=== PATIENT | female | born 1940 | race Two or more races ===

== ENCOUNTER 2020-08-26 09:22 | Outpatient (REF) | payer MEDICARE, SELFPAY ==
[2020-08-26 11:54] LABS: Alanine Aminotransferase 13 U/L (0-31); Alkaline Phosphatase 94 U/L (39-117); Anion Gap 12 (12-20); Aspartate Amino Transferase 14 U/L (5-31); Bilirubin Total 0.9 mg/dL (0.0-1.0); Blood Urea Nitrogen 12 mg/dL (9-16); Calcium 9.5 mg/dL (8.4-10.2); Carbon Dioxide 29 mmol/L (22-29); Chloride 103 mmol/L (96-108); Estimated Glomerular Filt Rate 53; Glucose Fasting 107 mg/dL (60-99); Potassium 4.1 mmol/l (3.3-5.1); Sodium 140 mmol/L (135-145); Total Protein 7.2 g/dL (6.5-8.0)
[2020-08-26 12:22] LABS: TSH reflex Free T4 2.24 mIU/mL (0.32-4.0)
== END 2020-08-26 09:23 | disposition home or self-care (01) ==
LOC: HO.WFDLDS 09:22
PROVIDERS: Visit Provider Family Medicine
DX: E86.0 Dehydration (principal); F41.9 Anxiety disorder, unspecified
CPT/HCPCS: 80053; 84443

== ENCOUNTER 2021-01-20 10:34 | Outpatient (REF) | payer MEDICARE, SELFPAY ==
--- NOTE | ~2021-01-20 | MM_ITS ---
EXAMINATION: MM SCREENING DIGITAL BREAST TOMOSYNTHESIS, BILATERAL CLINICAL INFORMATION: Screening. Asymptomatic. The lifetime risk of breast cancer based on the Tyrer-Cuzick Model is 2%. COMPARISON: Mammography: 12/04/2019, 10/17/2018, 10/03/2017 TECHNIQUE: Digital breast tomosynthesis is performed in both the craniocaudal and mediolateral oblique views along with computer-aided detection (CAD). Synthesized 2D images are generated from the tomosynthesis. FINDINGS: There are scattered areas of fibroglandular density (ACR BI-RADS breast composition Category b). Parenchymal pattern is similar to prior studies. Nodularity anterior left breast is similar to prior studies. Bilateral retroareolar duct ectasia is also stable. There is no developing density or interval significant mass or architectural abnormality or abnormal calcifications. The axilla and skin contours are unremarkable. No significant changes. MM/MM tomosynthesis screening BI IMPRESSION: No significant changes from prior studies. ASSESSMENT: BI-RADS 2: Benign RECOMMENDATION: Routine annual mammography screening. This patient's information was entered into a reminder system with a target due date for their next mammogram.
== END 2021-01-20 10:35 | disposition home or self-care (01) ==
LOC: HO.MAMMO 10:34
PROVIDERS: Visit Provider Family Medicine
DX: Z12.31 Encounter for screening mammogram for malignant neoplasm of breast (principal)
CPT/HCPCS: 77063; 77067

== ENCOUNTER 2021-07-31 12:55 | Emergency (ER) | payer MEDICARE, SELFPAY ==
--- NOTE | ~2021-07-31 | XR_ITS ---
EXAMINATION: XR CHEST CLINICAL INFORMATION: Cough with wheezing for 2 weeks COMPARISON: 07/11/2018 TECHNIQUE: Frontal view of the chest was obtained. FINDINGS: Normal heart size. Mild unfolding of the thoracic aorta. Adequate expansion of the lungs. No focal consolidation. Stable chronic changes. No pleural effusion or pneumothorax. No acute osseous abnormality. Degenerative changes of the spine and bilateral shoulders. XR/XR chest 1V IMPRESSION: No acute disease within the chest.
[2021-07-31 12:59] VITALS: BP 145/76; PULSE 82; RESP 17; TEMP 36.3; O2SAT 96; BMI 33.8
[2021-07-31] MEDS: predniSONE 20 MG TABLET 60 MG PO (15:20)
[2021-07-31] MEDS: Albuterol Sulfate (0.083%) 2.5 MG/3 ML VIAL.NEB INHALE (15:42)
[2021-07-31 15:43] VITALS: PULSE 82; O2SAT 98
[2021-07-31 15:57] LABS: COVID-19 Test Negative (Negative)
--- NOTE | 2021-07-31 16:25 | ED.ASTHMA ---
HPI - Asthma General Chief Complaint: Asthma Stated Complaint: asthma Time Seen by Provider: 07/31/21 15:06 Source: patient and family (Daughter at bedside) Mode of arrival: ambulatory Limitations: language barrier (Taiwanese-speaking) History of Present Illness HPI Narrative: 80-year-old female with a past medical history of Chronic GERD, Depression and asthma currently on Singulair inhaler and nebulizers presenting to the ED with complaints of asthma exacerbation for the past 2 weeks with a dry cough and chest tightness. She reports that she is using her Singulair inhaler as prescribed although her grandson has asthma and he needed to use her nebulizer machine therefore she length at all and she has not gotten it back therefore she was unable to give herself a breathing treatment. She denies recent travel or sick contacts. She denies any fevers, chills, dizziness, headaches, neck pain/stiffness, sore throat, ear pain, trouble swallowing or breathing, chest pain, orthopnea, palpitations, nausea/vomiting/diarrhea constipation, abdominal pain, back pain, lower extremity edema or calf tenderness or any other symptoms complaints or concerns at this time. MD complaint: asthma attack , shortness of breath and wheezing Onset (ago): week(s) (Two weeks) Severity: moderate and worse than usual Context: other (She does not have her nebulizer due to she gave it to her grandson to use) Associated symptoms: dry cough Asthma History: followed by specialist Treatments Prior to Arrival: inhaled bronchodilator Related Data Current Asthma Therapy: inhaled bronchodilator Previous Rx's Medication Instructions Recorded paroxetine HCl 20 mg tablet (Paxil) 20 mg PO DAILY 90 Days #90 tab 10/19/20 albuterol sulfate 0.63 mg/3 mL 0.63 mg (3 mL) INHALATION QID PRN 07/31/21 solution for nebulization #75 ml albuterol sulfate 90 mcg/actuation 1 inh INHALATION QID PRN #8.5 g 07/31/21 aerosol inhaler azithromycin 250 mg tablet See Rx Instructions .ROUTE 07/31/21 .COMPLEX #6 tab nebulizers (AeroEclipse II #1 ea 07/31/21 Nebulizer) prednisone 20 mg tablet 40 mg PO DAILY 5 Days #10 tab 07/31/21 Allergies Allergy/AdvReac Type Severity Reaction Status Date / Time tree nut [TREE NUT] Allergy Severe SWELLING Verified 07/31/21 12:59 egg [EGG] Allergy Intermediate SWELLING,IT Verified 07/31/21 12:59 СВЕТЛАНА aspirin [ASPIRIN] Allergy Mild GI UPSET, Verified 07/31/21 12:59 stomach upset milk [MILK] Allergy Unknown ITCHY Verified 07/31/21 12:59 TONGUE - LACTOSE INTOL FRUIT Allergy Severe SWELLING Uncoded 07/31/21 12:59 Egg/Pro Allergy Unknown itching - Uncoded 07/31/21 12:59 no raw white, no merange Milk - lactose intollerance Allergy Unknown Unknown Uncoded 07/31/21 12:59 peaches, plums, apples, Allergy Unknown anaphylaxis Uncoded 07/31/21 12:59 prunes Review of Systems Review of Systems: Constitutional : denies med noncompliance, no history of PE or DVT, denies recent travel, No Fever, No Chills ENT/Mouth : No Hoarseness, No sore throat, No Rhinorrhea Eyes: No Redness, No Discharge, No Vision Changes Cardiovascular : No Chest Pain, + SOB, No Dyspnea on Exertion, No Edema, no pleurisy, Respiratory : + Cough, + Wheezing, No Sputum, no stridor, no hemoptysis, Gastrointestinal : No Nausea, No Vomiting, No Diarrhea, No abdominal Pain Genitourinary : No Dysuria, No Hematuria Musculoskeletal : No joint pain, No Myalgias Extremities: no extremity swelling /pain Skin : No rash, no itching, no swelling Neuro : No Weakness, No Numbness, No Headache Psych : No anxiety, depression Heme/Lymph: No Bruising, No Bleeding Endocrine : No Polyuria, No Polydipsia Yes all other systems are reviewed and are negative [facility] Past Medical History Attestation statement: The following information was validated with the patient. Social History Social History Advance Directives: No Physical Exam Vital Signs: Vital Signs: Last Vital Signs Temp 97.3 F 07/31/21 12:59 Pulse 82 07/31/21 15:43 Resp 17 07/31/21 12:59 BP 145/76 H 07/31/21 12:59 Pulse Ox 96 07/31/21 12:59 Body Mass Index 33.8 vital signs have been reviewed as normal and appeared to be correct. Blood pressure hypertensive 146/76 Heart rate normal. Respiration rate normal. Temperature normal. Oxygen saturation normal. Appearance: Alert. Oriented X3. No acute distress. Head: Normal external exam. Normocephalic. Atraumatic. Eyes: PERRLA. EOMI. Conjunctiva and sclera normal. Eyelids normal. ENT: EAC normal. TM's Normal. Pharynx normal. Uvula midline. Moist mucous membranes. No trismus noted. No drooling noted. No muffled voice noted. Neck: Normal inspection. Neck supple. FROM. No adenopathy. Thyroid Normal. No meningeal signs. No neck mass noted. CVS: Normal heart rate and rhythm. Heart sound normal. Pulses normal throughout. No murmurs/rales/gallops. Respiratory: Mild respiratory distress with decreased breath sounds and inspiratory and expiratory wheezing throughout. Patient has pain with inspiration. No rales/rhonchi noted. Chest is nontender. No accessory muscle usage or tracheal tugging noted. Back: Full range of motion noted. No rashes/lesion/induration/fluctuance or signs of infection noted. Skin: Skin warm and dry. Normal skin color. Normal skin turgor. No rashes/lesions/lacerations noted. Extremities: No lower extremity edema. No calf tenderness is noted. Extremities exhibit normal range of motion. Extremities nontender. Neuro: Oriented X 3. No motor deficit. No sensory deficit. Reflexes normal. Normal steady gait. No focal neuro deficits noted. Vascular: + radial pulses/+ 2 distal pedal pulses/+2 dorsalis pedis b/l. Normal cap refill. No cyanosis noted to upper extremity nails and lower extremity toes nails. Course Course Course Narrative: 80-year-old female with a past medical history of Chronic GERD, Depression and asthma currently on Singulair inhaler and nebulizers presenting to the ED with complaints of asthma exacerbation for the past 2 weeks with a dry cough and chest tightness. She reports that she is using her Singulair inhaler as prescribed although her grandson has asthma and he needed to use her nebulizer machine therefore she length at all and she has not gotten it back therefore she was unable to give herself a breathing treatment. Chest x-ray obtained and negative for any acute processes. COVID swab is negative. Patient is now status post breathing tx and exam improved. Will d/c home c abx's and steroids and instructions to f/u c PCP and to return if any new or worsening symptoms and to follow up with primary care provider. Patient and daughter at bedside understand and agree this plan. MDM - Asthma Medical Records Attestation: I reviewed the patient's medical records. Lab Data Labs: Lab Results 07/31/21 Range/Units 15:27 COVID-19 (TONY) Negative (Negative) COVID-19 Clin Com See Note Imaging Data Chest x-ray: Attestation: I personally reviewed and interpreted this imaging study as follows: Radiologist's impression: FINDINGS: Normal heart size. Mild unfolding of the thoracic aorta. Adequate expansion of the lungs. No focal consolidation. Stable chronic changes. No pleural effusion or pneumothorax. No acute osseous abnormality. Degenerative changes of the spine and bilateral shoulders. XR/XR chest 1V IMPRESSION: No acute disease within the chest. Critical Care Time Critical Care Time Critical Care Time: Yes Total Critical Care Time: 60 Attestation: I personally attest to this time spent taking care of the patient Discharge Plan Discharge Clinical Impression: Asthma with acute exacerbation, Acute asthmatic bronchitis Patient Disposition: Home, Self-Care Instructions: Asthma (ED), Acute Bronchitis (ED) Prescriptions: New (DME) AeroEclipse II Nebulizer Misc See Rx Instructions .ROUTE .MEDSUPPLY Qty: 1 RF: 0 albuterol sulfate 0.63 mg/3 mL solution for nebulization 0.63 mg inhalation QID PRN (Reason: shortness of breath or wheezing) Qty: 75 RF: 0 albuterol sulfate 90 mcg/actuation HFA aerosol inhaler 1 inh inhalation QID PRN (Reason: shortness of breath or wheezing) Qty: 8.5 RF: 0 azithromycin 250 mg tablet See Rx Instructions .ROUTE .COMPLEX Qty: 6 RF: 0 prednisone 20 mg tablet 40 mg PO DAILY 5 Days Qty: 10 RF: 0 No Action paroxetine HCl [Paxil] 20 mg tablet 20 mg PO DAILY 90 Days Qty: 90 RF: 3 Referrals: Roland Altman MD [Primary Care Provider] - 2 days Print Language: Urdu
== END 2021-07-31 16:40 | disposition home or self-care (01) ==
PROVIDERS: Physician Assistant Medical; Emergency Provider Emergency Medicine Emergency Medical Services; PCP Family Medicine
DX: J45.901 Unspecified asthma with (acute) exacerbation (principal); Z20.822 Contact with and (suspected) exposure to COVID-19; Z79.899 Other long term (current) drug therapy
CPT/HCPCS: 36415; 71045; 87635; 94640; 99283; 99284

== ENCOUNTER 2021-12-10 11:53 | Outpatient (REF) | payer MEDICARE, SELFPAY ==
[2021-12-10 13:47] LABS: MANUAL DIFF FLAG NO
[2021-12-10 13:53] LABS: Basophils Percent Auto 0.7 % (0-2); Eosinophils Absolute Auto 0.1 X10*3/uL (0.0-0.4); Eosinophils Percent Auto 1.7 % (0-4); Hemoglobin 13.9 g/dl (12.0-16.0); Imm Gran Abs Auto 0.01 X10*3/uL (0.00-0.03); Imm Gran Pct Auto 0.2 % (0.0-0.4); Lymphocytes Percent Auto 34.1 % (20-40); Mean Corpuscular HGB Conc 31.6 g/dl (31.0-35.0); Mean Corpuscular Hemoglobin 28.7 pg (27.0-33.0); Mean Corpuscular Volume 90.9 fL (80.0-98.0); Mean Platelet Volume 11.6 fL (9.4-12.3); Monocytes Absolute Auto 0.6 X10*3/uL (0.1-1.2); Monocytes Percent Auto 9.4 % (2-11); Neutrophils Absolute Auto 3.2 x10*3/uL (2.0-8.3); Neutrophils Percent Auto 53.9 % (45-73); Platelet Count 261 X10*3/uL (160-400); Red Blood Count 4.84 X10*6/uL (4.20-5.50); Red Cell Distribution Width 12.6 % (11.0-16.0); White Blood Count 5.9 X10*3/uL (4.8-10.8)
[2021-12-10 14:10] LABS: Alanine Aminotransferase 12 U/L (0-31); Albumin Level 4.2 g/dL (3.5-5.0); Alkaline Phosphatase 95 U/L (39-117); Anion Gap 11 (12-20); Aspartate Amino Transferase 15 U/L (5-31); Bilirubin Total 0.9 mg/dL (0.0-1.0); Blood Urea Nitrogen 9 mg/dL (9-16); Calcium 9.9 mg/dL (8.4-10.2); Carbon Dioxide 28 mmol/L (22-29); Chloride 104 mmol/L (96-108); Cholesterol 251 mg/dL; Estimated Glomerular Filt Rate > 60; Glucose Fasting 97 mg/dL (60-99); HDL Cholesterol 55 mg/dL; LDL Cholesterol Calculated 169 mg/dl; Potassium 4.3 mmol/L (3.3-5.1); Sodium 139 mmol/L (135-145); Total Protein 7.3 g/dL (6.5-8.0); Triglycerides 136 mg/dL
[2021-12-10 14:32] LABS: TSH reflex Free T4 2.12 uIU/mL (0.32-4.0)
== END 2021-12-10 11:54 | disposition home or self-care (01) ==
LOC: HO.WFDLDS 11:53
PROVIDERS: Visit Provider Family Medicine
DX: Z00.00 Encounter for general adult medical examination without abnormal findings (principal)
CPT/HCPCS: 36415; 80053; 80061; 84443; 85025

== ENCOUNTER → 2022-01-14 13:30 | Outpatient (REF) | payer MEDICARE, SELFPAY ==
--- NOTE | 2022-01-14 13:34 | ECG_ITS ---
Hook-up date: 2022-01-14 12:43:00 Duration: 47:59:00 Test Indications: PALPITATIONS Medications: [id number] QRS complexes 6 Ventricular ectopics which represent <1 % of total QRS comp. 69 Supraventricular ectopics which represent <1 % of total QRS comp. * Paced QRS complexs which represent % of total QRS comp. VENTRICULAR ECTOPY 6 Isolated 0 Bigeminal Cycles 0 Couplets 0 Runs 0 Beats in Runs * Beats LONGEST at * BPM at :: -- * Beats FASTEST at * BPM at :: -- SUPRAVENTRICULAR ECTOPY 57 Isolated 2 Couplets 3 Runs 16 Beats in Runs 9 Beats LONGEST at 124 BPM at 18:34:08 2022-01-15 3 Beats FASTEST at 166 BPM at 17:18:53 2022-01-15 HEART RATES 58 MIN at 09:56:11 2022-01-15 76 AVG 121 MAX at 12:56:28 2022-01-15 LONGEST RR 1.0320 secs at 09:53:18 2022-01-15 S-T LEVELS Channel 1 - 128 mm at 12:43:00 2022-01-14 - 128 mm at 12:43:00 2022-01-14 Channel 2 - 128 mm at 12:43:00 2022-01-14 - 128 mm at 12:43:00 2022-01-14 Channel 3 - 128 mm at 03:20:21 -- - 128 mm at 03:20:21 Basic rhythm Normal sinus rhythm No long pause or profound bradycardia Rare Premature atrial complexes Patient did not report any symptoms in the diary Referred By: Roland Altman Overread By: LYUDMILA SKELTON MD
== END ==
LOC: HO.CARD 13:30
PROVIDERS: Visit Provider Family Medicine
DX: R00.2 Palpitations (principal)
CPT/HCPCS: 93225; 93226

== ENCOUNTER 2022-04-12 17:14 | Emergency (ER) | payer MEDICARE, SELFPAY ==
--- NOTE | ~2022-04-12 | XR_ITS ---
EXAMINATION: RIGHT HAND CLINICAL INFORMATION: Pain in right wrist after a fall today. COMPARISON: None TECHNIQUE: 4 views of right hand FINDINGS: Bandage around the distal fifth finger. There is a comminuted fracture distal tuft of distal phalanx of the fifth digit. Fracture fragment slightly displaced. 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 XR/XR hand wrist RT IMPRESSION: There is a comminuted fracture distal tuft distal phalanx of fifth digit.
[2022-04-12 17:15] VITALS: BP 156/70; PULSE 88; RESP 18; TEMP 36.7; O2SAT 99; BMI 33.8
--- NOTE | 2022-04-12 21:34 | ED_ITS ---
HPI - Extremity Problem General Chief complaint: Extremity Injury, Upper Stated complaint: arm injury, bleeding Time Seen by Provider: 04/12/22 21:34 Source: patient Mode of arrival: ambulatory Limitations: no limitations History of Present Illness HPI Narrative: 81-year-old female presents with injuries to the right 5th and 3rd fingers from a crush injury. After she crushed her fingers in the hinge of a step ladder she fell forward and hit the left side of her lower lip on the ladder. She does not report any loss of consciousness, head injury, or significant fall. MD Complaint: extremity pain and extremity swelling Onset (ago): hour(s) (Within the hour of arrival) Pain Consistency: constant Location: right and upper extremity Severity scale (1-10): 8 Quality: aching Radiation: none Relieving factors: nothing Exacerbating factors: range of motion and palpation Associated symptoms: denies other symptoms Related Data Previous Rx's Medication Instructions Recorded albuterol sulfate 0.63 mg/3 mL 0.63 mg (3 mL) inhalation QID PRN 07/31/21 solution for nebulization shortness of breath or wheezing #75 mL albuterol sulfate 90 mcg/actuation 1 inh inhalation QID PRN shortness 07/31/21 aerosol inhaler of breath or wheezing #8.5 grams azithromycin 250 mg tablet See Rx Instructions PO .COMPLEX #6 07/31/21 tabs nebulizers (AeroEclipse II #1 ea 07/31/21 Nebulizer) prednisone 20 mg tablet 40 mg PO DAILY rash 5 days #10 tabs 07/31/21 omeprazole 20 mg capsule,delayed 20 mg PO DAILY 14 days #14 caps 12/10/21 release paroxetine HCl 20 mg tablet (Paxil) 20 mg PO DAILY 90 days #90 tabs 01/18/22 amoxicillin 875 mg-potassium 1 tab PO Q12H 7 days #14 tabs 04/12/22 clavulanate 125 mg tablet Allergies Allergy/AdvReac Type Severity Reaction Status Date / Time tree nut [TREE NUT] Allergy Severe SWELLING Verified 01/21/22 11:04 egg [EGG] Allergy Intermediate SWELLING,IT Verified 01/21/22 11:04 СВЕТЛАНА aspirin [ASPIRIN] Allergy Mild GI UPSET, Verified 01/21/22 11:04 stomach upset milk [MILK] Allergy Unknown ITCHY Verified 01/21/22 11:04 TONGUE - LACTOSE INTOL FRUIT Allergy Severe SWELLING Uncoded 01/21/22 11:04 Egg/Pro Allergy Unknown itching - Uncoded 01/21/22 11:04 no raw white, no merange Milk - lactose intollerance Allergy Unknown Unknown Uncoded 01/21/22 11:04 peaches, plums, apples, Allergy Unknown anaphylaxis Uncoded 01/21/22 11:04 prunes Review of Systems Review of Systems: Constitutional: No Fever, No Chills ENT/Mouth: No Ear Pain, No Hoarseness, No sore throat Eyes: No Eye Pain, No Swelling, No Redness, No Foreign Body Cardiovascular: No Chest Pain, No SOB Respiratory: No Cough, No Dyspnea Gastrointestinal: No Nausea, No Vomiting, No Diarrhea, No abdominal Pain Genitourinary: No Dysuria, No Hematuria Musculoskeletal: positive right 3rd and 5th finger pain, No Myalgias, No Joint Swelling Skin: Positive lacerations right side 3rd finger with bruising to digits, bruising to left lower lip, nail avulsion to 5th finger Neuro: No Weakness, No Numbness, No Paresthesias, No Loss of Consciousness, No Dizziness, No Headache Psych: No Anxiety/Panic, No Depression Heme/Lymph: no easy bruising, no Lymphadenopathy Endocrine: No Polyuria, No Polydipsia Yes all other systems are reviewed and are negative PMFSH Past Medical History Attestation statement: The following information was validated with the patient. Source: old records reviewed Social History Social History Housing: Apartment Patient Tobacco Use Status: Never used Tobacco e-Cigarette/Vaping Use: Never Used Second Hand Smoke Exposure: No Advance Directives: No Advance Directives Information Provided: Yes Advance Directives on File: No service: No Current occupational status: unemployed Current occupational exposures/hazards: No Physical Exam Vital Signs: Vital Signs: Last Vital Signs Temp 98.0 F 04/12/22 17:15 Pulse 88 04/12/22 17:15 Resp 18 04/12/22 17:15 BP 156/70 H 04/12/22 17:15 Pulse Ox 99 04/12/22 17:15 O2 Del Method 04/12/22 17:15 BMI result Body Mass Index 33.8 Appearance: Alert. Oriented X3. No acute distress. Eyes: Pupils equal, round and reactive to light. ENT: Pharynx normal. Neck: Normal inspection. Neck supple. CVS: Normal heart rate and rhythm. Pulses normal. Respiratory: No respiratory distress. Breath sounds normal. Abdomen: Soft and nontender. Skin: 1 cm laceration to the dorsal aspect of the right 3rd finger, 0.5 cm la ceration to the ventral aspect of the 3rd right finger, bruising noted to the 5th right finger, 3rd right finger, and a left lower lip. Nail avulsion to the ulnar aspect of the 5th finger tip, distal phalanx fracture 5th finger Skin warm and dry. Normal skin color. Normal skin turgor. Extremities: No lower extremity edema. Gait well-balanced well coordinated. Neuro: No motor deficit. No sensory deficit. Cranial nerves 2-12 intact. Course Course Course Narrative: 81-year-old female presents for crush injury to the right hand, nail avulsion right 5th fingernail on the ulnar side, 5th distal phalanx fracture, and laceration right 3rd finger dorsal aspect 1 cm, ventral aspect 0.5 cm. X-rays were completed while patient was in the emergency department waiting room and resulted prior to my assessment. Unknown when last Tdap was updated. Plan of care is for laceration repair, nail avulsion repair to the 5th digit, and finger splinting. Laceration sites prepped and draped in sterile fashion. Irrigated with copious amounts of normal saline. Patient tolerated procedure well. Digital block effective. Updated Tdap vaccine. Will prescribe Augmentin for prophylaxis. Patient will return in this week to primary care physician or this facility for wound evaluation and 5th fingernail check. Patient and patient's family verbalized understanding of and agrees plan of care discharge home. Verbalized understanding of signs and symptoms indicating need for emergent intervention. MDM - Extremity (Nontraumatic) MDM Narrative Medical decision making narrative: Crush injury, avulsion, laceration, fracture, dislocation Medical Records Attestation: I reviewed the patient's medical records. Lab Data Attestation: I reviewed the patient's lab results. Imaging Data Right hand x-ray: Attestation: I personally reviewed and interpreted this imaging study as follows: Radiologist's impression: EXAMINATION: RIGHT HAND CLINICAL INFORMATION: Pain in right wrist after a fall today.? COMPARISON: None? TECHNIQUE: 4 views of right hand? FINDINGS: Bandage around the distal fifth finger. There is a comminuted fracture distal tuft of distal phalanx of the fifth digit. Fracture fragment slightly displaced. 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 XR/XR hand wrist RT IMPRESSION: There is a comminuted fracture distal tuft distal phalanx of fifth digit.? Procedures Laceration Laceration 1: Site: hand (Third finger dorsal aspect) Side (If applicable): right Size (cm): 1 Description: linear Depth: simple, single layer Local Anesthetic: lidocaine 1% Amount of anesthesia used (mL): 4 Pre-repair: wound explored, irrigated extensively and deep structures intact Skin layer closed with: other (Prolene) Size (cm): 4-0 Number of sutures: 4 Technique: simple, interrupted Laceration 2: Site: hand Side (If applicable): right (3rd finger ventral aspect) Size (cm): 0.5 Description: linear Depth: simple, single layer Local Anesthetic: lidocaine 1% Amount of anesthesia used (mL): 1 Pre-repair: wound explored, irrigated extensively and deep structures intact Skin layer closed with: other (Prolene) Size (cm): 4-0 Number of sutures: 1 Technique: simple, interrupted Discharge Plan Discharge Clinical Impression: Finger fracture, right, Finger laceration, Contusion of lip Patient Disposition: Home, Self-Care Instructions: Care For Your Stitches (ED), Laceration (ED), Finger Fracture (ED), Contusion in Adults (ED), Finger Laceration (ED), R.I.C.E. Treatment (ED) Additional Instructions: You were evaluated for crush injury to your right 5th and 3rd fingers. I placed 4 sutures on the dorsal aspect of her 3rd finger and 1 suture on the ventral aspect of your 3rd finger. Please return in 10-14 days to have the sutures removed. If you notice any signs or symptoms of a indicating infection please return to the emergency department or to your primary care physician or urgent care for evaluation. Your 5th finger had a crush injury to the distal tip. I replaced the nail back into its proper position and glued it with Steri-Strips. Please keep the Steri- Strips in place. The Steri-Strips will fall off on their own. The tip of her finger is fractured. Please use the finger splint to protect the finger. I prescribed Augmentin 875 mg twice a day for the next 7 days. Please take this medication as directed. Alternate Tylenol 650 mg every 6 hours and Motrin 400 mg every 6 hours as needed for pain management. Write down what time you takes these medications to pr event accidental overdose We updated your Tdap vaccine while you were in the emergency department. Please rest, ice and elevate the hand to help reduce pain and swelling. You may also use ice your lower lip. Follow-up with primary care physician this week. Return to the emergency department for any new, concerning, or worsening symptoms. Prescriptions: New amoxicillin-pot clavulanate 875-125 mg tablet 1 tab PO Q12H 7 Days Qty: 14 0RF No Action paroxetine HCl [Paxil] 20 mg tablet 20 mg PO DAILY 90 Days Qty: 90 3RF (DME) AeroEclipse II Nebulizer Misc See Rx Instructions .ROUTE .MEDSUPPLY Qty: 1 0RF Rx Instructions: As directed albuterol sulfate 0.63 mg/3 mL solution for nebulization 0.63 mg inhalation QID PRN (Reason: shortness of breath or wheezing) Qty: 75 0RF albuterol sulfate 90 mcg/actuation HFA aerosol inhaler 1 inh inhalation QID PRN (Reason: shortness of breath or wheezing) Qty: 8.5 0RF azithromycin 250 mg tablet See Rx Instructions .ROUTE .COMPLEX Qty: 6 0RF Rx Instructions: take 500 mg today (day 1), then 250 mg for 4 days (days 2-5) prednisone 20 mg tablet 40 mg PO DAILY 5 Days Qty: 10 0RF omeprazole 20 mg capsule,delayed release(DR/EC) 20 mg PO DAILY 14 Days Qty: 14 0RF Discharge Date/Time: 04/12/22 23:28
[2022-04-12] MEDS: Lidocaine HCl 1 % MPF 5 ML VIAL 10 ML SUBCUT (22:05)
[2022-04-12] MEDS: Diphth,Pertus(ACell),Tet Adult 0.5 ML SYRINGE IM (22:06)
[2022-04-12] MEDS: Amoxicillin/Potassium Clav 875 MG TABLET PO (23:27)
== END 2022-04-12 23:28 | disposition home or self-care (01) ==
PROVIDERS: Emergency Provider Emergency Medicine; PCP Family Medicine
DX: S62.636A Displaced fracture of distal phalanx of right little finger, initial encounter for closed fracture (principal); S61.212A Laceration without foreign body of right middle finger without damage to nail, initial encounter; S61.316A Laceration without foreign body of right little finger with damage to nail, initial encounter; S00.531A Contusion of lip, initial encounter; W23.0XXA Caught, crushed, jammed, or pinched between moving objects, initial encounter; Y93.89 Activity, other specified; Y92.039 Unspecified place in apartment as the place of occurrence of the external cause; Y99.9 Unspecified external cause status
CPT/HCPCS: 12001; 29130; 73110; 73130; 90471; 90715; 96374; 99281; 99284

== ENCOUNTER 2022-11-21 13:00 | Outpatient (RCR) | payer MEDICARE, SELFPAY | END 2022-11-24 11:45 | disposition home or self-care (01) | LOC: HO.PT 13:00 | PROVIDERS: PCP Family Medicine; Visit Provider Student in an Organized Health Care Education/Training Program | DX: Z96.642 Presence of left artificial hip joint (principal) | CPT/HCPCS: 97110; 97161 ==

== ENCOUNTER 2023-07-07 13:31 | Outpatient (AMB) | payer MEDICARE, SELFPAY ==
[2023-07-07 13:37] VITALS: BP 128/72; PULSE 76; RESP 16; O2SAT 97; BMI 35.1
--- NOTE | 2023-07-07 13:37 | A.OFFPC_ITS ---
Vital Signs 07/07/23 13:37 Height 5 ft 2 in Weight 192 lb 2 oz BMI 35.1 BP 128/72 Blood Pressure Location Lt brachial Position Sitting Respiration 16 Pulse 76 Pulse Oximetry (%) 97 Oxygen Delivery Method Room Air Intake Visit Reasons: f/u chronic conditions, code suspect condition Intake Note: Patient is here for follow up on chronic conditions. Patient is concerned of hea rt palpitations for the last couple of months. Allergies tree nut [TREE NUT] Allergy (Severe, Verified 07/07/23 13:48) SWELLING egg [EGG] Allergy (Intermediate, Verified 07/07/23 13:48) SWELLING,ITCHING aspirin [ASPIRIN] Allergy (Mild, Verified 07/07/23 13:48) GI UPSET, stomach upset milk [MILK] Allergy (Unknown, Verified 07/07/23 13:48) ITCHY TONGUE - LACTOSE INTOL FRUIT Allergy (Severe, Uncoded 07/07/23 13:48) SWELLING Egg/Pro Allergy (Unknown, Uncoded 07/07/23 13:48) itching - no raw white, no merange Milk - lactose intollerance Allergy (Unknown, Uncoded 07/07/23 13:48) Unknown peaches, plums, apples, prunes Allergy (Unknown, Uncoded 07/07/23 13:48) anaphylaxis Tobacco use date assessed: 07/07/23 Fall risk assessment: 1 Fall in past year Last assessed Fall Risk: 07/07/23 Dental Screening Dental Screen Date: 07/07/23 Did you have a dental visit in the last 12 months?: No Did you have a dental problem in the last 6 months where you did not have access to dental care?: No Was dental information given to patient?: Yes HPI f/u chronic conditions, code suspect condition HPI Details 82 y/o female presents to f/u chronic co nditions. Pt reports complaints of heart palpitations x2 months. Pt reports worsened asthma as well. She notes palpitations had come before her worsened asthma. HPI Comments History of Present Illness0 Details Documentation assistance for Roland Altman MD, was provided by Ed Hyman,? Contracting Support Specialist on 07/07/2023 2:17 PM EST. I, Dr. Altman, have read, observed, and verified documentation. [facility] Social History Housing: Apartment Patient Tobacco Use Status: Never used Tobacco e-Cigarette/Vaping Use: Never Used Second Hand Smoke Exposure: No service: No Current occupational status: unemployed and retired Current occupational exposures/hazards: No Cognitive needs: No Hearing needs: No Vision needs: Yes Questionnaire Thrive Questionnaire Date Thrive assessed: 04/15/22 TIMOTHY-7 AMB Questionnaire TIMOTHY-7 Date TIMOTHY - 7 assessed: 04/15/22 Source: Developed by Drs. Charbel Rowley, Lula Saucedo, Jj Bernal and colleagues, with an educational vazquez from [employer]. ACT Questionnaire In the past 4 weeks, how much of the time did your asthma keep you from getting as much done at work, school or at home?: Some of the time During the past 4 weeks, how often have you had shortness of breath?: More than once a day During the past 4 weeks, how often did your asthma symptoms wake you up at night or earlier than usual in the morning?: Once or twice per week During the past 4 weeks, how often have you had to use your rescue inhaler or nebulizer medication?: 2-3 times a week How would you rate your asthma control during the past 4 weeks?: Somewhat controlled Score: 14 Review of Systems Const Denies chills, Denies fatigue, Denies fever(s), Denies headache(s) and Denies weakness ENT Denies dizziness and Denies headache(s) Card Denies chest pain, Denies lightheadedness, Denies dyspnea and Denies other (Palpitations) Resp Denies cough, Denies dyspnea, Denies wheezing and Denies other ( shortness of breath) Musc Denies numbness and Denies tingling Neuro Denies dizziness, Denies headache(s), Denies numbness, Denies tingling, Denies paresthesias and Denies weakness Psych Denies anxiety and Denies depression Endo Denies fatigue Aller/Immun Denies wheezing Physical exam (Primary Care) Vital Signs: Last Vital Signs Pulse 76 07/07/23 13:37 Resp 16 07/07/23 13:37 BP 128/72 07/07/23 13:37 Pulse Ox 97 07/07/23 13:37 Oxygen Delivery Method Room Air 07/07/23 13:37 BMI result Body Mass Index 35.1 Tobacco/Smoking Status: Tobacco use Status Tobacco use date assessed 07/07/23 07/07/23 13:51 Patient Tobacco Use Status Never used Tobacco 07/07/23 13:42 e-Cigarette/Vaping Use Never Used 07/07/23 13:42 Thrive Assessment: Date of Thrive Assessment Date Thrive assessed 04/15/22 07/07/23 13:42 Const General: no acute distress and well developed Nutritional Appearance: well nourished Orientation/consciousness: patient oriented x3 HENMT Head: Yes normocephalic and Yes atraumatic Eyes General: appearance normal, both eyes and all related structures Pupils: Equal, round and reactive pupils present EOM: EOMs intact bilaterally Resp Other: Expiratory wheezes Effort & Inspection: normal respiratory effort Auscultation: clear to auscultation bilaterally Cardio Rate: regular rate Rhythm: regular rhythm Heart sounds: S1 normal heart sound present, S2 normal heart sound present, no gallops, no murmurs and no rubs Neuro General: patient oriented x3 and gait normal Cranial nerves: Yes Equal, round and reactive pupils present Psych Affect: normal affect Assessment and Plan Assessment & Plan (1) Palpitations: Code(s): R00.2 - Palpitations Plan: EKG?shows?normal?sinus?rhythm?with?normal?axis, left?atrial?enlargement,?no ?ventricular?hypertrophy, no?ST-T-wave?changes Cardiac?auscultation?is?normal Prior?EKG?is?similar. Prior?Holter?monitor?test?was?unremarkable Will?repeat?Holter?monitor?test Changing?ProAir?to?leave?albuterol Will?follow.??She?has?an?appointment?in?a?month (2) Asthma: Code(s): J45.909 - Unspecified asthma, uncomplicated Plan: Will?give?her?a?Flovent?and?leave?albuterol?inhalers Orders: Orders AMB EKG-In Office Today R00.2 - Palpitations ECG holter monitor 48 hour Today R00.2 - Palpitations Medications: New fluticasone propionate 50 mcg/actuation (Flonase Allergy Relief) administer into each nostril 1 spray intranasal Q12H 30 days 16 grams 2RF fluticasone propionate 110 mcg/actuation (Flovent HFA) 1 puff inhalation Q12H 30 days 12 grams 3RF levalbuterol tartrate 45 mcg/actuation 2 puffs inhalation Q4-6H PRN 15 grams 2RF shortness of breath 30 days J45.909 - Unspecified asthma, uncomplicated, R00.2 - Palpitations Coding Level of Care Code Est Pt Level 3 (00991) Diagnoses Palpitations R00.2 Asthma J45.909
== END 2023-07-07 14:48 | disposition home or self-care (01) ==
PROVIDERS: PCP Family Medicine; Visit Provider Family Medicine
DX: R00.2 Palpitations (principal); J45.909 Unspecified asthma, uncomplicated
CPT/HCPCS: 99213

== ENCOUNTER → 2023-07-25 15:04 | Outpatient (REF) | payer MEDICARE, SELFPAY ==
--- NOTE | 2023-07-25 15:06 | HM_ITS ---
* Total monitoring time 2 days. * Underlying rhythm is sinus. Average ventricular rate 72/Min. Range 58 to 116/min. * Rare supraventricular ventricular ectopy. * No sustained arrhythmias. * No significant pauses or AV blocks. * No patient markers or events in diary. MTDD
== END ==
LOC: HO.CARD 15:04
PROVIDERS: PCP Family Medicine; Visit Provider Family Medicine
DX: R00.2 Palpitations (principal)
CPT/HCPCS: 93225

== ENCOUNTER → 2023-07-25 15:06 | Outpatient (BNV) | payer MEDICARE, SELFPAY | PROVIDERS: PCP Family Medicine; Visit Provider Internal Medicine | DX: I47.10 Supraventricular tachycardia, unspecified (principal) | CPT/HCPCS: 93227 ==

== ENCOUNTER 2023-10-17 14:51 | Outpatient (AMB) | payer MEDICARE, SELFPAY ==
[2023-10-17 15:13] VITALS: BP 122/74; PULSE 75; O2SAT 95; BMI 34.7
--- NOTE | 2023-10-17 15:13 | MHC.PC.OV ---
Vital Signs 10/17/23 15:13 Height 5 ft 2 in Weight 190 lb BMI 34.7 BP 122/74 Blood Pressure Location Lt brachial Position Sitting Pulse 75 Pulse Oximetry (%) 95 Oxygen Delivery Method Room Air Intake Visit Reasons: Annual Physical Intake Note: Patient is here for her physical, and is concerned of white spot on lower left leg. Allergies tree nut [TREE NUT] Allergy (Severe, Verified 10/17/23 15:16) SWELLING egg [EGG] Allergy (Intermediate, Verified 10/17/23 15:16) SWELLING,ITCHING aspirin [ASPIRIN] Allergy (Mild, Verified 10/17/23 15:16) GI UPSET, stomach upset milk [MILK] Allergy (Unknown, Verified 10/17/23 15:16) ITCHY TONGUE - LACTOSE INTOL FRUIT Allergy (Severe, Uncoded 10/17/23 15:16) SWELLING Egg/Pro Allergy (Unknown, Uncoded 10/17/23 15:16) itching - no raw white, no merange Milk - lactose intollerance Allergy (Unknown, Uncoded 10/17/23 15:16) Unknown peaches, plums, apples, prunes Allergy (Unknown, Uncoded 10/17/23 15:16) anaphylaxis Tobacco use date assessed: 10/17/23 Fall risk assessment: No Falls in past year Last assessed Fall Risk: 10/17/23 Dental Screening Dental Screen Date: 10/17/23 Did you have a dental visit in the last 12 months?: No Did you have a dental problem in the last 6 months where you did not have access to dental care?: No Was dental information given to patient?: Patient has dentist HPI Annual Physical HPI Details 82 y/o female presents for a CPE with f/u labs and health maintenance. No recent labs to review. Pt had questions about the pneumonia shot - she notes she had gotten it about 9-10 years ago. Pt reports ongoing palpitations. She denies any chest pain. [facility] Social History Housing: Apartment Patient Tobacco Use Status: Never used Tobacco e-Cigarette/Vaping Use: Never Used Second Hand Smoke Exposure: No service: No Current occupational status: unemployed and retired Current occupational exposures/hazards: No Cognitive needs: No Hearing needs: No Vision needs: Yes Questionnaire PHQ-9 Over the last 2 weeks, how often have you been bothered by any of the following problems? 1. Little interest or pleasure in doing things: not at all 2. Feeling down, depressed, or hopeless: not at all 3. Trouble falling or staying asleep, or sleeping too much: not at all 4. Feeling tired or having little energy: not at all 5. Poor appetite or overeating: not at all 6. Feeling bad about yourself - or that you are a failure or have let yourself or your family down: not at all 7. Trouble concentrating on things, such as reading the newspaper or watching television: not at all 8. Moving or speaking so slowly that other people could have noticed. Or the opposite - being so fidgety or restless that you have been moving around a lot more than usual: not at all 9. Thoughts that you would be better off or of hurting yourself in some way: not at all Total score: 0 Source: Developed by Drs. Charbel Rowley, Lula Saucedo, Jj Bernal and colleagues, with an educational vazquez from [email or web address]. Thrive Questionnaire Date Thrive assessed: 04/15/22 I am a: Patient What is your living situation today?: I have a steady place to live Within the past 12 months, did the food you bought not last and you didn't have the money to get more?: Never true Within the past 12 months, did you worry whether your food would run out before you got money to buy more?: Never true Do you have trouble paying for medicines?: No Do you have trouble getting transportation to medical appointments?: No Do you have trouble paying your heating and electricity bill?: No Do you have trouble taking care of your child, family member or friend?: No Do you have trouble with day-to-day activities such as bathing, preparing meals, shopping, managing finances, etc.?: No Are you currently unemployed and looking for a job?: No Are you interested in more education?: No THRIVE Score: 0 AUDIT C Alcohol Use Questionnaire (AUDIT-C) 1. How often do you have a drink containing alcohol?: Never 3. How often do you have six or more drinks on one occasion?: Never Total Score: 0 TIMOTHY-7 AMB Questionnaire TIMOTHY-7 Date TIMOTHY - 7 assessed: 10/17/23 Feeling nervous, anxious, or on edge: 0 = Not at all Not being able to stop or control worryin = Not at all Worrying too much about different things: 0 = Not at all Trouble relaxin = Not at all Being so restless that it is hard to sit still: 0 = Not at all Becoming easily annoyed or irritable: 0 = Not at all Feeling afraid as if something awful might happen: 0 = Not at all Total TIMOTHY-7 score (0-4 normal; 5-9 mild; 10-14 moderate; 15-21 severe): 0 Source: Developed by Drs. Charbel Rowley, Lula Saucedo, Jj Bernal and colleagues, with an educational vazquez from [email or web address]. ACT Questionnaire In the past 4 weeks, how much of the time did your asthma keep you from getting as much done at work, school or at home?: Most of the time During the past 4 weeks, how often have you had shortness of breath?: 1-2 times a week During the past 4 weeks, how often did your asthma symptoms wake you up at night or earlier than usual in the morning?: Not at all During the past 4 weeks, how often have you had to use your rescue inhaler or nebulizer medication?: Not at all How would you rate your asthma control during the past 4 weeks?: Somewhat controlled Score: 19 Review of Systems Const Denies chills, Denies fatigue, Denies fever(s), Denies headache(s) and Denies weakness Eyes Denies change in vision ENT Denies dizziness, Denies headache(s), Denies hearing loss, Denies nasal congestion, Denies sinus pain, Denies sinus pressure and Denies sore throat Card Denies chest pain, Denies lightheadedness, Denies dyspnea and Denies other (palpitations) Resp Denies cough, Denies dyspnea and Denies wheezing GI Denies abdominal pain, Denies melena, Denies hematochezia, Denies change in bowel habits, Denies dyspepsia and Denies nausea Denies hematuria and Denies dysuria Musc Denies abnormal gait, Denies myalgias, Denies arthralgias, Denies numbness and Denies tingling Skin/Breast Denies rash, Denies unusual bruising and Denies wounds Neuro Denies abnormal gait, Denies dizziness, Denies headache(s), Denies memory loss, Denies numbness, Denies Sensory deficit (Neuro), Denies tingling and Denies weakness Psych Denies anxiety, Denies depression and Denies memory loss Endo Denies cold intolerance, Denies fatigue, Denies heat intolerance, Denies polydipsia and Denies polyuria Arnav/Lymph Denies easy bleeding and Denies easy bruising Aller/Immun Denies wheezing Physical exam (Primary Care) BMI result Body Mass Index 34.7 Tobacco/Smoking Status: Tobacco use Status Tobacco use date assessed 07/07/23 10/17/23 15:14 Patient Tobacco Use Status Never used Tobacco 10/17/23 15:14 e-Cigarette/Vaping Use Never Used 10/17/23 15:14 Thrive Assessment: Date of Thrive Assessment Date Thrive assessed 04/15/22 10/17/23 15:14 Const General: no acute distress, well developed, alert and awake Nutritional Appearance: well nourished Orientation/consciousness: patient oriented x3 HENMT Head: Yes normocephalic and Yes atraumatic Ears: hearing grossly normal bilaterally and TM's normal bilaterally General nose exam: Normal external nose present and Normal nares present Mouth: Normal oral and palatal mucosa present and moist mucous membranes Teeth and gingiva: dentition normal Throat: Yes posterior oropharynx normal Eyes General: appearance normal, both eyes and all related structures Pupils: Equal, round and reactive pupils present and Pupil accommodation reflex normal EOM: EOMs intact bilaterally Neck Neck: Yes normal visual inspection, Yes no lymphadenopathy and Yes trachea midline Thyroid: Thyroid normal Carotids: no bruits Lymphatic: no lymphadenopathy noted Chest Chest palpation & inspection: normal inspection of the chest Resp Effort & Inspection: normal respiratory effort Auscultation: clear to auscultation bilaterally Cardio Rate: regular rate Rhythm: regular rhythm Heart sounds: S1 normal heart sound present, S2 normal heart sound present, no gallops, no murmurs and no rubs Bruits: no abdominal aortic bruits and no carotid bruits GI Palpation (GI): No Abdominal aortic bruit present, Soft to palpation, nontender, No hepatosplenomegaly present and No Rebound tenderness present Auscultation: normal bowel sounds General: Yes no CVA tenderness Back/Spine/Pelvis Back: no CVA tenderness Cervical Spine: cervical ROM normal and No Cervical spine tenderness Thoracic/Lumbar Spine: thoraco-lumbar ROM normal, No pain with thoraco-lumbar ROM, No thoracic spinal tenderness and No lumbar spinal tenderness Skin Other: 1 cm raised, rounded lump at the back of her calf. Lesions: no lesions Rashes: no rashes Trauma: no lacerations or abrasions Wounds: no wounds Nails: normal Neuro General: patient oriented x3 and No gait normal Cranial nerves: Yes Equal, round and reactive pupils present Cognition (Neuro): normal cognition Gait exam (Neuro): gait abnormal Motor exam (neuro): 5/5 motor strength present throughout Sensory Exam: No Sensory deficit (Neuro) Deep tendon reflexes (DTR's): Right patellar reflex intensity grade: 2+ and Left patellar reflex intensity grade: 2+ Extrem General: Yes normal to inspection and No edema Psych Appearance: grossly normal Affect: normal affect Attitude: cooperative Thought process: Normal thought process present Assessment and Plan Assessment & Plan (1) Adult general medical exam: Code(s): Z00.00 - Encounter for general adult medical examination without abnormal findings Plan: 82-year-old?female?presents?for?complete?physical?exam (2) Immunization counseling: Code(s): Z71.85 - Encounter for immunization safety counseling Plan: Recommended?PCV?20 She?can?get?this?at?her?pharmacy (3) Palpitations: Code(s): R00.2 - Palpitations Plan: Still?having?palpitations.??Holter?monitor?and?EKG?were?unremarkable. She?wants?a?referral?to?Cardiology?which?I?have?made (4) Neoplasm of uncertain behavior of skin: Code(s): D48.5 - Neoplasm of uncertain behavior of skin Plan: Referred?to?Dermatology (5) Screening for osteoporosis: Code(s): Z13.820 - Encounter for screening for osteoporosis Plan: Check?bone?density (6) Vertigo: Code(s): R42 - Dizziness and giddiness Plan: Patient?has?vertigo?symptoms?and?tinnitus. Not?associated?with?her?palpitations?were?any?chest?pain. Start?physical?therapy If?not?improving,?will?consider?imaging?and?referral?to?neurology (7) Unsteady gait: Code(s): R26.81 - Unsteadiness on feet Plan: Likely?secondary?to?vertigo-see?above Orders: Orders Comprehensive [place]. Panel Fast Today Z00.00 - Encounter for general adult medical examination without abnormal findings Complete Blood Count Auto Diff Today Z00.00 - Encounter for general adult medical examination without abnormal findings XR DEXA axial skeleton Today M81.0 - Age-related osteoporosis without current pathological fracture Lipid Panel Today Z00.00 - Encounter for general adult medical examination without abnormal findings Microalbumin, Random (w Creat) Today I10 - Essential (primary) hypertension TSH reflex Free T4 Today Z00.00 - Encounter for general adult medical examination without abnormal findings UA and rflx microscopic Today Z00.00 - Encounter for general adult medical examination without abnormal findings PT Evaluation and Treatment Today R26.81 - Unsteadiness on feet, R42 - Dizziness and giddiness Referrals Dermatology Referral D48.5 - Neoplasm of uncertain behavior of skin Cardiology Referral R00.2 - Palpitations Coding Level of Care Code Est Pt Level 3 (14304) Est Pt Prev Care >65y(50983) Diagnoses Adult general medical exam Z00.00 Immunization counseling Z71.85 Palpitations R00.2 Neoplasm of uncertain behavior of skin D48.5 Screening for osteoporosis Z13.820 Vertigo R42 Unsteady gait R26.81
== END 2023-10-17 16:16 | disposition home or self-care (01) ==
PROVIDERS: PCP Family Medicine; Visit Provider Family Medicine
DX: Z00.00 Encounter for general adult medical examination without abnormal findings (principal); R00.2 Palpitations; D48.5 Neoplasm of uncertain behavior of skin; R42 Dizziness and giddiness; R26.81 Unsteadiness on feet; Z71.85 Encounter for immunization safety counseling; Z13.820 Encounter for screening for osteoporosis
CPT/HCPCS: 99213; 99397

== ENCOUNTER 2023-10-31 11:15 | Outpatient (REF) | payer MEDICARE, SELFPAY ==
[2023-10-31 11:55] LABS: MANUAL DIFF FLAG NO
[2023-10-31 12:52] LABS: Basophils Absolute Auto 0.1 X10*3/uL (0.0-0.2); Basophils Percent Auto 0.9 % (0-2); Eosinophils Absolute Auto 0.2 X10*3/uL (0.0-0.4); Eosinophils Percent Auto 2.6 % (0-4); Hematocrit 41.6 % (37.0-47.0); Hemoglobin 13.5 g/dl (12.0-16.0); Imm Gran Abs Auto 0.02 X10*3/uL (0.00-0.03); Imm Gran Pct Auto 0.4 % (0.0-0.4); Lymphocytes Percent Auto 35.7 % (20-40); Mean Corpuscular HGB Conc 32.5 g/dl (31.0-35.0); Mean Corpuscular Hemoglobin 28.8 pg (27.0-33.0); Mean Corpuscular Volume 88.9 fL (80.0-98.0); Mean Platelet Volume 11.2 fL (9.4-12.3); Monocytes Absolute Auto 0.6 X10*3/uL (0.1-1.2); Monocytes Percent Auto 10.4 % (2-11); Neutrophils Absolute Auto 2.8 x10*3/uL (2.0-8.3); Platelet Count 244 X10*3/uL (160-400); Red Blood Count 4.68 X10*6/uL (4.20-5.50); Red Cell Distribution Width 12.6 % (11.0-16.0); White Blood Count 5.7 X10*3/uL (4.8-10.8)
[2023-10-31 14:00] LABS: Appearance Urine Clear; Color Urine Dark Yellow; Glucose Urine UA Negative (Negative); Leukocyte Esterase Urine Negative (Negative); Nitrite Urine Negative (Negative); PH 6.5 (5.0-9.0); Urine Blood Negative (Negative); Urine Ketones Trace mg/dL (Negative); Urine Protein Negative (Neg-Trace)
[2023-10-31 14:02] LABS: Alanine Aminotransferase 12 U/L (0-31); Albumin Level 3.9 g/dL (3.5-5.0); Alkaline Phosphatase 88 U/L (39-117); Anion Gap 11 (12-20); Aspartate Amino Transferase 15 U/L (5-31); Bilirubin Total 0.8 mg/dL (0.0-1.0); Blood Urea Nitrogen 9 mg/dL (9-16); Calcium 9.7 mg/dL (8.4-10.2); Carbon Dioxide 28 mmol/L (22-29); Chloride 103 mmol/L (96-108); Cholesterol 245 mg/dL (<200); Estimated Glomerular Filt Rate 53; Glucose Fasting 94 mg/dL (60-99); HDL Cholesterol 55 mg/dL (>40); Iron 112 mcg/dL (30-160); LDL Cholesterol Calculated 165 mg/dL (<100); Percent Iron Saturation 37 % (15-50); Potassium 4.2 mmol/L (3.3-5.1); Sodium 138 mmol/L (135-145); Total Iron Binding Capacity 303 mcg/dL (228-428); Total Protein 7.3 g/dL (6.5-8.0); Triglycerides 126 mg/dL (<150); Unsaturated Iron Binding 191 ug/dL
[2023-10-31 14:18] LABS: Vitamin D 25-OH Total 11.4 ng/mL (>30)
[2023-10-31 14:29] LABS: Folate 8.8 ng/mL (> or = 4.0); Vitamin B12 320 pg/mL (200-900)
[2023-10-31 14:35] LABS: Creatinine Urine 154.17 mg/dL; Microalbum/Creatinine Ratio Ur 8.4 ug/mg cr (<30)
== END 2023-10-31 11:16 | disposition home or self-care (01) ==
LOC: HO.LAB 11:15
PROVIDERS: PCP Family Medicine; Visit Provider Family Medicine
DX: Z00.00 Encounter for general adult medical examination without abnormal findings (principal); I10 Essential (primary) hypertension; E53.8 Deficiency of other specified B group vitamins; D48.5 Neoplasm of uncertain behavior of skin; E55.9 Vitamin D deficiency, unspecified; R00.2 Palpitations
CPT/HCPCS: 36415; 80053; 80061; 81003; 82043; 82306; 82570; 82607; 82746; 83540; 84443; 85025

== ENCOUNTER 2023-11-03 13:00 | Outpatient (REF) | payer MEDICARE, SELFPAY ==
--- NOTE | ~2023-11-03 | MM_ITS ---
EXAMINATION: BONE DENSITOMETRY CLINICAL INDICATION: Age-related osteoporosis without current pathological fracture. COMPARISON: Baseline BD dated 03/13/2007. TECHNIQUE: Using a [employer] DXA System (software version: 13.1) manufactured by [employer], dual-energy x-ray absorptiometry was performed of the lumbar spine and left forearm radius 33%. Patient with bilateral hip replacements. The images are of good technical quality. Summary results are attached. FINDINGS: AP SPINE L1-L3 (excluding L4): The data of L1-L4 has been changed to exclude the L4 vertebral body, because degenerative sclerosis at this level may cause overestimation of lumbar spine density. Current: BMD 1.208 g/cm2, Z-score 1.4, T-score 0.3, normal, 1.2% decrease from baseline (<5% change is not significant). Baseline: BMD 1.223 g/cm2. LEFT FOREARM RADIUS 33%: BMD 0.629 g/cm2, Z-score 0.1, T-score -2.8, osteoporosis. IDENTIFIED RISK FACTORS: Menopause, height loss. HISTORY OF FRACTURE: None listed. MEDICATIONS: None listed. MM/XR DEXA axial skeleton IMPRESSION: 1. DIAGNOSIS: Osteoporosis based on the lowest T-score value of -2.8 in the forearm radius 33% applying World Health Organization criteria. 2. 10-YEAR FRACTURE RISK PREDICTION, FRAX: According to the guidelines, FRAX calculation should only be performed on patients in the osteopenia bone density category. Therefore, FRAX was not performed on this patient. 3. Treatment Recommendations: NOF guidelines recommend consideration for treatment in postmenopausal women and men age 50 and older presenting with the following: -A hip or vertebral (clinical or morphometric) fracture. -T-score less than or equal to -2.5 at the femoral neck or spine after appropriate evaluation to exclude secondary causes. -Low bone mass at the hip or spine and a 10-year fracture probability by FRAX of greater than or equal to 3% for hip fracture or greater than or equal to 20% for major osteoporotic fracture based on the [place] adapted WHO algorithm. 4. Other Recommendations: All treatment decisions require clinical judgment and consideration of individual patient factors, including patient preferences, comorbidities, previous drug use, risk factors not captured in the FRAX model (e.g. frailty, falls, vitamin D deficiency, increased bone turnover, interval significant decline in bone density) and possible under or overestimation of fracture risk by FRAX. Additional medical evaluation for secondary cause of low bone mineral density may be appropriate. FUTURE SCAN RECOMMENDATION: People with diagnosed cases of osteoporosis or at high risk for fracture should have regular bone mineral density tests. For patients eligible for Medicare, routine testing is allowed once every 2 years. The testing frequency can be increased to one year for patients who have rapidly progressing disease, those who are receiving or discontinuing medical therapy to restore bone mass, or have additional risk factors.
== END 2023-11-03 13:01 | disposition home or self-care (01) ==
LOC: HO.MAMMO 13:00
PROVIDERS: PCP Family Medicine; Visit Provider Family Medicine
DX: M81.0 Age-related osteoporosis without current pathological fracture (principal)
CPT/HCPCS: 77080

== ENCOUNTER 2023-11-16 13:44 | Outpatient (AMB) | payer MEDICARE, SELFPAY ==
--- NOTE | 2023-11-16 13:47 | A.OFFPC_ITS ---
Vital Signs 11/16/23 13:51 Height 5 ft 2 in Weight 192 lb 4 oz BMI 35.2 BP 161/75 H Blood Pressure Location Lt brachial Position Sitting Pulse 71 Pulse Source Pulse Oximeter Pulse Oximetry (%) 97 Oxygen Delivery Method Room Air Intake Visit Reasons: f/u CPE-labs & vertigo Intake Note: Patient is here to follow up on labs, and vertigo. Allergies tree nut [TREE NUT] Allergy (Severe, Verified 11/16/23 13:52) SWELLING egg [EGG] Allergy (Intermediate, Verified 11/16/23 13:52) SWELLING,ITCHING aspirin [ASPIRIN] Allergy (Mild, Verified 11/16/23 13:52) GI UPSET, stomach upset milk [MILK] Allergy (Unknown, Verified 11/16/23 13:52) ITCHY TONGUE - LACTOSE INTOL FRUIT Allergy (Severe, Uncoded 11/16/23 13:52) SWELLING Egg/Pro Allergy (Unknown, Uncoded 11/16/23 13:52) itching - no raw white, no merange Milk - lactose intollerance Allergy (Unknown, Uncoded 11/16/23 13:52) Unknown peaches, plums, apples, prunes Allergy (Unknown, Uncoded 11/16/23 13:52) anaphylaxis Tobacco use date assessed: 10/17/23 HPI f/u CPE-labs & vertigo HPI Details 83 y/o female presents to f/u CPE-labs a nd vertigo. Labs were drawn 10/31/23. Reviewed labs with pt. Triglycerides 126. TC 245. LDL 165. HDL 55. Vitamin D low at 11.4. Blood pressure today 161/75. Pt reports symptoms of vertigo. [facility] Social History Housing: Apartment Patient Tobacco Use Status: Never used Tobacco e-Cigarette/Vaping Use: Never Used Second Hand Smoke Exposure: No service: No Current occupational status: unemployed and retired Current occupational exposures/hazards: No Cognitive needs: No Hearing needs: No Vision needs: Yes Questionnaire Thrive Questionnaire Date Thrive assessed: 04/15/22 TIMOTHY-7 AMB Questionnaire TIMOTHY-7 Date TIMOTHY - 7 assessed: 10/17/23 Source: Developed by Drs. Charbel Rowley, Lula Saucedo, Jj Bernal and colleagues, with an educational vazquez from [employer]. ACT Questionnaire In the past 4 weeks, how much of the time did your asthma keep you from getting as much done at work, school or at home?: A little of the time During the past 4 weeks, how often have you had shortness of breath?: 1-2 times a week During the past 4 weeks, how often did your asthma symptoms wake you up at night or earlier than usual in the morning?: Once or twice per week During the past 4 weeks, how often have you had to use your rescue inhaler or nebulizer medication?: Not at all How would you rate your asthma control during the past 4 weeks?: Somewhat controlled Score: 20 Review of Systems Const Denies chills, Denies fatigue, Denies fever(s), Denies headache(s) and Denies weakness ENT Denies dizziness and Denies headache(s) Card Denies chest pain, Denies lightheadedness, Denies dyspnea and Denies other (Palpitations) Resp Denies cough, Denies dyspnea, Denies wheezing and Denies other ( shortness of breath) Musc Denies numbness and Denies tingling Neuro Denies dizziness, Denies headache(s), Denies numbness, Denies tingling, Denies paresthesias and Denies weakness Psych Denies anxiety and Denies depression Endo Denies fatigue Aller/Immun Denies wheezing Physical exam (Primary Care) Vital Signs: Last Vital Signs Pulse 71 11/16/23 13:51 BP 161/75 H 11/16/23 13:51 Pulse Ox 97 11/16/23 13:51 Oxygen Delivery Method Room Air 11/16/23 13:51 BMI result Body Mass Index 35.2 Tobacco/Smoking Status: Tobacco use Status Tobacco use date assessed 10/17/23 11/16/23 13:50 Patient Tobacco Use Status Never used Tobacco 11/16/23 13:50 e-Cigarette/Vaping Use Never Used 11/16/23 13:50 Thrive Assessment: Date of Thrive Assessment Date Thrive assessed 04/15/22 11/16/23 13:50 Const General: no acute distress and well developed Nutritional Appearance: well nourished Orientation/consciousness: patient oriented x3 HENMT Head: Yes normocephalic and Yes atraumatic Eyes General: appearance normal, both eyes and all related structures Pupils: Equal, round and reactive pupils present EOM: EOMs intact bilaterally Resp Effort & Inspection: normal respiratory effort Auscultation: clear to auscultation bilaterally Cardio Rate: regular rate Rhythm: regular rhythm Heart sounds: S1 normal heart sound present, S2 normal heart sound present, no gallops, no murmurs and no rubs Neuro General: patient oriented x3 and gait normal Cranial nerves: Yes Equal, round and reactive pupils present Psych Affect: normal affect Assessment and Plan Assessment & Plan (1) Vertigo: Code(s): R42 - Dizziness and giddiness Plan: Ongoing?vertigo?symptoms?and?also?feelings?of? blacking?out Checking?echocardiogram?and?carotid?Doppler Has?an?appointment?with?cardiology Checking?head?CT (2) Low vitamin D level: Code(s): R79.89 - Other specified abnormal findings of blood chemistry Plan: She?has?been?started?on?cholecalciferol?44417?IU?weekly (3) Hypertension: Code(s): I10 - Essential (primary) hypertension Plan: Blood?pressure?is?high. Start?lisinopril (4) Osteoporosis: Code(s): M81.0 - Age-related osteoporosis without current pathological fracture Plan: Bone?density?shows?osteoporosis Start?alendronate (5) Hyperlipidemia: Code(s): E78.5 - Hyperlipidemia, unspecified Plan: LDL?cholesterol?is?too?high.??HDL?is?good Fairly?good?HDL?ratios Will?discuss?further?at?next?visit Orders: Orders CA echo transthoracic complete Today I10 - Essential (primary) hypertension, R00.2 - Palpitations, R42 - Dizziness and giddiness US carotid duplex BI Today R42 - Dizziness and giddiness CT head/brain wo IV con Today R42 - Dizziness and giddiness Medications: New lisinopril 10 mg PO DAILY 30 tabs 3RF 30 days alendronate 70 mg PO QWEEK 28 days 4 tabs 3RF M81.0 - Age-related osteoporosis without current pathological fracture Coding Level of Care Code Est Pt Level 4 (42556) Diagnoses Vertigo R42 Low vitamin D level R79.89 Hypertension I10 Osteoporosis M81.0 Hyperlipidemia E78.5
[2023-11-16 13:51] VITALS: BP 161/75; PULSE 71; O2SAT 97; BMI 35.2
== END 2023-11-16 14:24 | disposition home or self-care (01) ==
PROVIDERS: PCP Family Medicine; Visit Provider Family Medicine
DX: R42 Dizziness and giddiness (principal); R79.89 Other specified abnormal findings of blood chemistry; I10 Essential (primary) hypertension; M81.0 Age-related osteoporosis without current pathological fracture; E78.5 Hyperlipidemia, unspecified
CPT/HCPCS: 99214

== ENCOUNTER 2023-12-22 13:50 | Outpatient (AMB) | payer MEDICARE, SELFPAY ==
[2023-12-22 13:52] VITALS: BP 132/80; PULSE 82; O2SAT 96; BMI 35.3
--- NOTE | 2023-12-22 13:52 | A.OFFPC_ITS ---
Vital Signs 12/22/23 13:52 Height 5 ft 2 in Weight 193 lb 2 oz BMI 35.3 BP 132/80 Blood Pressure Location Lt brachial Position Sitting Pulse 82 Pulse Source Pulse Oximeter Pulse Oximetry (%) 96 Oxygen Delivery Method Room Air Intake Visit Reasons: f/u dizziness Intake Note: Patient is here for follow up on dizziness. Patient states the Lisionpril is making her cough too much. Allergies tree nut [TREE NUT] Allergy (Severe, Verified 12/22/23 13:57) SWELLING egg [EGG] Allergy (Intermediate, Verified 12/22/23 13:57) SWELLING,ITCHING aspirin [ASPIRIN] Allergy (Mild, Verified 12/22/23 13:57) GI UPSET, stomach upset milk [MILK] Allergy (Unknown, Verified 12/22/23 13:57) ITCHY TONGUE - LACTOSE INTOL FRUIT Allergy (Severe, Uncoded 12/22/23 13:57) SWELLING lisinopril Allergy (Mild, Uncoded 12/22/23 14:05) Cough Egg/Pro Allergy (Unknown, Uncoded 12/22/23 13:57) itching - no raw white, no merange Milk - lactose intollerance Allergy (Unknown, Uncoded 12/22/23 13:57) Unknown peaches, plums, apples, prunes Allergy (Unknown, Uncoded 12/22/23 13:57) anaphylaxis Tobacco use date assessed: 12/22/23 Fall risk assessment: No Falls in past year Last assessed Fall Risk: 12/22/23 Dental Screening Dental Screen Date: 12/22/23 Did you have a dental visit in the last 12 months?: Yes Did you have a dental problem in the last 6 months where you did not have access to dental care?: No Was dental information given to patient?: Patient declined HPI f/u dizziness HPI Details 83 y/o female presents to f/u vertigo, h ypertension and osteoporosis. Had started lisinopril for hypertension. Had started alendronate for osteoporosis. Pt notes lisinopril has caused her a cough. PFSH Social History Housing: Apartment Patient Tobacco Use Status: Never used Tobacco e-Cigarette/Vaping Use: Never Used Second Hand Smoke Exposure: No service: No Current occupational status: unemployed and retired Current occupational exposures/hazards: No Cognitive needs: No Hearing needs: No Vision needs: Yes Questionnaire Thrive Questionnaire Date Thrive assessed: 04/15/22 TIMOTHY-7 AMB Questionnaire TIMOTHY-7 Date TIMOTHY - 7 assessed: 10/17/23 Source: Developed by Drs. Charbel Rowley, Lula Saucedo, Jj Bernal and colleagues, with an educational vazquez from [employer]. Review of Systems Const Denies chills, Denies fatigue, Denies fever(s), Denies headache(s) and Denies weakness ENT Denies dizziness and Denies headache(s) Card Denies chest pain, Denies lightheadedness, Denies dyspnea and Denies other (Palpitations) Resp Denies cough, Denies dyspnea, Denies wheezing and Denies other ( shortness of breath) Musc Denies numbness and Denies tingling Neuro Denies dizziness, Denies headache(s), Denies numbness, Denies tingling, Denies paresthesias and Denies weakness Psych Denies anxiety and Denies depression Endo Denies fatigue Aller/Immun Denies wheezing Physical exam (Primary Care) Vital Signs: Last Vital Signs Pulse 82 12/22/23 13:52 BP 132/80 12/22/23 13:52 Pulse Ox 96 12/22/23 13:52 Oxygen Delivery Method Room Air 12/22/23 13:52 BMI result Body Mass Index 35.3 Tobacco/Smoking Status: Tobacco use Status Tobacco use date assessed 12/22/23 12/22/23 13:59 Patient Tobacco Use Status Never used Tobacco 12/22/23 13:59 e-Cigarette/Vaping Use Never Used 12/22/23 13:59 Thrive Assessment: Date of Thrive Assessment Date Thrive assessed 04/15/22 12/22/23 13:59 Const General: no acute distress and well developed Nutritional Appearance: well nourished Orientation/consciousness: patient oriented x3 HENMT Head: Yes normocephalic and Yes atraumatic Eyes General: appearance normal, both eyes and all related structures Pupils: Equal, round and reactive pupils present EOM: EOMs intact bilaterally Resp Effort & Inspection: normal respiratory effort Auscultation: clear to auscultation bilaterally Cardio Rate: regular rate Rhythm: regular rhythm Heart sounds: S1 normal heart sound present, S2 normal heart sound present, no gallops, no murmurs and no rubs Neuro General: patient oriented x3 and gait normal Cranial nerves: Yes Equal, round and reactive pupils present Psych Affect: normal affect Assessment and Plan Assessment & Plan (1) Hypertension: Code(s): I10 - Essential (primary) hypertension Plan: Blood?pressure?much?improved?and?controlled?on?lisinopril?10?mg?daily.??Goal?is? less?than?140/90 However,?she?notes?an?annoying?cough?since?starting?lisinopril Will?trial?metoprolol?succinate?25?mg?daily.??May?also?help?with?palpitations. Advised?that?she?use?caution?when?standing?up-avoid?standing?up?quickly. She?will?let?me?know?if?she?has?any?problems?with?this (2) Vertigo: Code(s): R42 - Dizziness and giddiness Plan: Ongoing?vertigo?symptoms?and?also?feelings?of? blacking?out Will?refer?her?to?vestibular?rehab/PT?for?vertigo See?below?regarding?presyncope?sensation (3) Pre-syncope: Code(s): R55 - Syncope and collapse Plan: Complaints?of??blacking?out??which?seem?separate?to?her?than?her?vertigo She?has?an?appointment?with?cardiology I?had?ordered?head?CT,?echocardiogram?and?carotid?duplex?but?these?do?not?appear ?to?be?scheduled - patient?says?she?is?scheduled?for?an?echoc ardiogram?though?I?do?not?see?that. Will?ask?the?office?to?check?on?the?status?of?these?studies. (4) Palpitations: Code(s): R00.2 - Palpitations Plan: As?above,?can?try?metoprolol Recent?Holter?monitor?test?in?the?fall?was?essentially?normal Has?appointment?with?cardiology Orders: Orders PT Evaluation and Treatment Today R42 - Dizziness and giddiness Medications: New metoprolol succinate ER 25 mg PO DAILY 30 tabs 3RF 30 days Discontinued lisinopril Discontinued Reason: Doctor's Order 10 mg PO DAILY 30 days 30 tabs 3RF Coding Level of Care Code Est Pt Level 4 (11361) Diagnoses Hypertension I10 Vertigo R42 Pre-syncope R55 Palpitations R00.2
== END 2023-12-22 14:33 | disposition home or self-care (01) ==
PROVIDERS: PCP Family Medicine; Visit Provider Family Medicine
DX: I10 Essential (primary) hypertension (principal); R42 Dizziness and giddiness; R55 Syncope and collapse; R00.2 Palpitations
CPT/HCPCS: 99214

== ENCOUNTER → 2024-03-29 07:54 | Outpatient (REF) | payer MEDICARE, SELFPAY ==
--- NOTE | 2024-03-29 07:58 | CA_ITS ---
Transthoracic Echocardiogram Patient (Last, First, Middle): Maegan Rivera V Gender: Female Date of : 1940 Age: 83 Procedure Date: 03/29/2024 Procedure Type: Transthoracic Echocardiogram Location: OP Height: 157.48 cm Weight: 88.91 kg BSA: 1.90 m2 Heart Rate: 61 bpm BP: 130 / 82 mmHg Environmental Compliance Inspector: TO Referring MD: Roland Altman MD Symptoms: R42 - Dizziness and giddiness Study Quality: Adequate ECG Rhythm: Sinus Conclusions: - The left ventricular systolic function is normal. The calculated ejection fraction is 57% by biplane method. - No obvious valvular pathology seen on this study. Findings Left Ventricle Normal left ventricular cavity size. The left ventricular systolic function is normal. The calculated ejection fraction is 57% by biplane method. There is no evidence of regional wall motion abnormalities. Diastolic function is normal for age. There is mild septal asymmetric hypertrophy. Right Ventricle Normal right ventricular cavity size and systolic function. Atria Both atria are normal in size. Aortic Valve There is a normal trileaflet aortic valve. There is no aortic valve stenosis. There is no aortic valve regurgitation. Mitral Valve The mitral valve appears normal. There is trace mitral valve regurgitation. There is no mitral valve stenosis. Pulmonic Valve There is trace pulmonic valve regurgitation. Tricuspid Valve There is trace tricuspid valve regurgitation. There is no evidence of pulmonary hypertension. Great Vessels The asc aorta is normal in size. Venous The inferior vena cava is normal in size and collapses greater than 50% with inspiration. Pericardium/Pleural There is no evidence of pericardial effusion. Prior Study Comparison No prior study available for comparison. Recommendations, Care & Conclusions No obvious valvular pathology seen on this study. Measurements 2D Linear Measurements IVSd: 1.18 0.6-0.9/0.6-1.0 cm LVIDd: 4.46 3.9-5.3/4.2-5.9 cm LVIDd Index: 2.35 2.4-3.2/2.2-3.1 cm/m2 LVIDs: 2.65 2.0-3.6 cm LVPWd: 1.00 0.7-1.1 cm LA Diam: 3.20 2.7-3.8/3.0-4.0 cm LAIDs Index: 1.68 1.5-2.3 cm/m2 LV Mass: 212.20 67-162/88-224 g LV Mass Index: 111.68 43-95/49-115 g/m2 LVOT Diam: 2.30 3.0+(-)1.3 cm 2D Systolic Function EF 4C: 56.50 >55% EF 2C: 58.30 >55% EF BiP: 57.20 >55% Mitral Valve MV Pk E: 0.72 MV PK A: 0.89 MV Decel Time: 208.00 E/A: 0.80 E'Lateral: 5.00 E'Medial: 5.00 E/E' Med: 14.30 E/E' Lat: 14.30 PHT: 61.00 MVA PHT: 3.61 Decel Dukes: 3.44 Aortic Valve AoV Pk Newton: 1.22 AoV Mn Newton: 0.80 AoV VTI: 0.30 AoV Pk Grad: 6.00 Aov Mn Grad: 3.00 SIDNEY Cont.VTI: 3.29 LVOT LVOT Pk Newton: 0.87 LVOT Mn Newton: 0.58 LVOT VTI: 0.24 LVOT Pk Grad: 3.00 LVOT Mn Grad: 2.00 LVOT Diam: 2.30 LVOT Area: 4.15 Diastolic Function MV Pk E: 0.72 MV Pk A: 0.89 E/A: 0.80 E'Medial: 5.00 E/E' Med: 14.30 E' Laterial: 5.00 E/E' Lat: 14.30 Right Ventricle TAPSE (mm): 20.80 TVS' Newton: 10.70 Tricuspid Valve TR Pk Newton: 2.10 TR Pk Grad: 18.00 RA Press: 3.00 RVSP: 21.00 Great Vessels Aorta Sinus of Valsalva: 3.35 2.0-3.[address] Ridge: 2.42 1.7-3.4 cm Ao Asc: 3.40 2.1-3.4 cm Updated in Other Vendor System with Status of Final Jon Spangler MD electronically signed on 03/30/2024 12:36:35 PM with status of Final
== END ==
LOC: HO.CARD 07:54
PROVIDERS: PCP Family Medicine; Visit Provider Family Medicine
DX: R00.2 Palpitations (principal); R42 Dizziness and giddiness; I10 Essential (primary) hypertension
CPT/HCPCS: 93306

== ENCOUNTER → 2024-03-29 07:58 | Outpatient (BNV) | payer MEDICARE, SELFPAY | PROVIDERS: PCP Family Medicine; Visit Provider Internal Medicine | DX: I42.2 Other hypertrophic cardiomyopathy (principal) | CPT/HCPCS: 93306 ==

== ENCOUNTER 2024-04-29 13:31 | Outpatient (AMB) | payer MEDICARE, SELFPAY ==
--- NOTE | 2024-04-29 13:55 | MHC.OFFVIS ---
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 Accompanied by: Daughter Allergies tree nut [TREE NUT] Allergy (Severe, Verified 12/22/23 13:57) SWELLING egg [EGG] Allergy (Intermediate, Verified 12/22/23 13:57) SWELLING,ITCHING aspirin [ASPIRIN] Allergy (Mild, Verified 12/22/23 13:57) GI UPSET, stomach upset milk [MILK] Allergy (Unknown, Verified 12/22/23 13:57) ITCHY TONGUE - LACTOSE INTOL FRUIT Allergy (Severe, Uncoded 12/22/23 13:57) SWELLING lisinopril Allergy (Mild, Uncoded 12/22/23 14:05) Cough Egg/Pro Allergy (Unknown, Uncoded 12/22/23 13:57) itching - no raw white, no merange Milk - lactose intollerance Allergy (Unknown, Uncoded 12/22/23 13:57) Unknown peaches, plums, apples, prunes Allergy (Unknown, Uncoded 12/22/23 13:57) anaphylaxis Medication List - Last Reconciled 04/29/24 by Jon Spangler MD albuterol sulfate 0.63 mg (3 mL) inhalation QID PRN albuterol sulfate 90 mcg/actuation 1 inh inhalation QID PRN alendronate 70 mg PO QWEEK 28 days cholecalciferol (vitamin D3) 1,250 mcg PO QWEEK 28 days epinephrine IM fluticasone propionate 110 mcg/actuation 1 puff inhalation Q12H 30 days fluticasone propionate 50 mcg/actuation (Flonase Allergy Relief) 1 spray intranasal Q12H 30 days levalbuterol tartrate 45 mcg/actuation 2 puffs inhalation Q4-6H PRN 30 days metoprolol succinate ER 25 mg PO DAILY 30 days nebulizers (AeroEclipse II Nebulizer) As directed omeprazole 20 mg PO DAILY 14 days paroxetine HCl 20 mg PO DAILY HPI Comments Details: Maegan is here for consultation regarding palpitations. She states that she frequently feels palpitations. Lot of times, these palpitations can be going on throughout the day. And essentially every day. She has had Holters in the past and they were unremarkable. No other symptoms like angina. No known coronary disease or cardiomyopathy or in fact anything else of cardiac nature. [facility] Surgical History (Updated 04/29/24 @ 14:00 by Ofelia Hoffman CMA) History of hip surgery Family History (Updated 04/29/24 @ 14:02 by Ofelia Hoffman CMA) Brother Cardiac pacemaker Social History (Updated 04/29/24 @ 14:01 by Ofelia Hoffman CMA) Housing: Apartment Alcohol intake: former Patient Tobacco Use Status: Never used Tobacco e-Cigarette/Vaping Use: Never Used Second Hand Smoke Exposure: No service: No Current occupational status: unemployed and retired Current occupational exposures/hazards: No Cognitive needs: No Hearing needs: No Vision needs: Yes Review of Systems Const Denies chills, Denies daytime sleepiness, Denies fatigue, Denies fever(s), Denies poor appetite, Denies snoring, Denies stops breathing during sleep, Denies weakness, Denies weight gain and Denies weight loss Eyes Denies loss of vision ENT Denies dizziness and Denies hearing loss Card Denies chest pain, Denies irregular heart rhythm, Denies claudication, Denies leg edema, Denies lightheadedness, Denies palpitations, Denies dyspnea on exertion and Denies orthopnea Resp Denies cough, Denies excessive phlegm production, Denies dyspnea on exertion, Denies snoring and Denies wheezing GI Denies abdominal pain, Denies hematochezia, Denies change in bowel habits, Denies nausea and Denies vomiting Denies urinary frequency and Denies dysuria Musc Denies arthralgias, Denies muscle weakness, Denies numbness and Denies other Skin/Breast Denies nail changes and Denies rash Neuro Denies Abnormal speech present, Denies dizziness, Denies loss of vision, Denies memory loss, Denies numbness and Denies weakness Psych Denies depression and Denies memory loss Endo Denies fatigue and Denies palpitations Arnav/Lymph Denies easy bruising Aller/Immun Denies wheezing Physical Exam Vital Signs: Last Vital Signs Pulse 63 04/29/24 13:56 BP 128/74 04/29/24 13:56 BMI result Body Mass Index 35.6 Const General: comfortable and no acute distress Orientation/consciousness: patient oriented x3 HEENT Other: Unremarkable Head: Yes normal to inspection Neck Neck: Yes normal visual inspection Chest Chest palpation & inspection: normal inspection of the chest Resp Auscultation: clear to auscultation bilaterally Cardio Palpation: normal PMI Heart sounds: S1 normal heart sound present, S2 normal heart sound present, no gallops, no murmurs and no rubs GI Palpation (GI): Soft to palpation Back/Spine/Pelvis Other: unremarkable Skin General skin exam: no rashes or lesions noted Neuro General: patient oriented x3 Speech: No Abnormal speech present Extrem General: Yes normal to inspection Psych Mental Status: mental status grossly normal Office Procedures EKG Details: EKG with underlying sinus rhythm at 63/min, no significant ST-T changes, [place] [id number], Complete Assessment & Plan Assessment & Plan (1) Palpitations: Code(s): R00.2 - Palpitations Category: Medical Plan Baseline EKGs unremarkable. In the echocardiogram, LVEF 57%. No wall motion abnormalities and otherwise unremarkable. Holter monitor from 2021 shows underlying sinus rhythm with rare supraventricular ectopy. Repeat Holter from 2022 again shows underlying sinus rhythm with rare supraventricular and ventricular ectopy. Overall, palpitations possibly related to the above ectopy but otherwise no other definitive arrhythmias. Findings discussed with patient and daughter. Mainly reassurance. She is also on beta-blockers and that may be continued for symptomatic relief. It seems that that was started for hypertension. Coding Level of Care Code New Pt Level 3 (77966) Diagnoses Palpitations R00.2 CPT Codes EKG - CPT: 40354-[id number], Complete ([id number])
[2024-04-29 13:56] VITALS: BP 128/74; PULSE 63; BMI 35.6
== END 2024-04-29 14:24 | disposition home or self-care (01) ==
PROVIDERS: PCP Family Medicine; Visit Provider Internal Medicine
DX: R00.2 Palpitations (principal); I45.10 Unspecified right bundle-branch block
CPT/HCPCS: 93010; 99213

== ENCOUNTER → 2024-04-29 13:31 | Outpatient (BNVA) | payer MEDICARE, SELFPAY | PROVIDERS: PCP Family Medicine; Visit Provider Internal Medicine | DX: R00.2 Palpitations (principal) | CPT/HCPCS: 93005; 99212 ==

== ENCOUNTER 2024-06-14 11:41 | Outpatient (AMB) | payer MEDICARE, SELFPAY ==
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
[2024-06-14 11:59] VITALS: BP 130/70; PULSE 71; RESP 16; TEMP 36.3; O2SAT 97; BMI 35.6
== END 2024-06-14 12:30 | disposition home or self-care (01) ==
PROVIDERS: PCP Family Medicine; Visit Provider Family Medicine
DX: M54.2 Cervicalgia (principal); R42 Dizziness and giddiness; I10 Essential (primary) hypertension; R55 Syncope and collapse; M79.674 Pain in right toe(s)

== ENCOUNTER → 2024-06-14 11:41 | Outpatient (BNVA) | payer MEDICARE, SELFPAY | PROVIDERS: PCP Family Medicine; Visit Provider Family Medicine | DX: M54.2 Cervicalgia (principal); R42 Dizziness and giddiness; R55 Syncope and collapse; I10 Essential (primary) hypertension; M79.674 Pain in right toe(s) | CPT/HCPCS: 99212 ==

== ENCOUNTER 2024-09-13 11:45 | Outpatient (AMB) | payer MEDICARE, SELFPAY ==
--- OUTSIDE RECORDS SUMMARY | 2024-09-13 11:47 | XMS_ITS | Data Portability ---
Author Organization [place] [facility] Steffi De Oliveira [address] [place] Address [address] [place] [address] Assessment No assessment recorded. Plan of Treatment Reminders Order Date Submit Date Provider Last Modified By Organization Details Last Modified Time Details Appointments None record ed. Lab None record ed. Referral None record ed. Procedures None record ed. Surgeries None record ed. Imaging XR, hip, unilat eral, 2 or 3 view 023 12/29/19 23 [email or web address] [facility], [address], [place], [address], 3 14:34:22 Medication Orders None record ed. Patient TargetsNo targets recorded. Patient Instructions Encounter Date Encounter Id Patient Instructions Last Modified By Organization Details Last Modified Time 12/28/2022 [id number] AP pelvis, AP an d lateral of the left hip demonstrates a left total hip replacement with components in appropriate position without any signs of hardware related complication. AP view of the right hip demonstrates a right total hip replacement with components in appropriate position without any signs of hardware related complications. [email or web address] Not available 12/28/2022 11:58:19 Reason for Referral None Reported. Medical Equipment None Reported. Medications Name Sig Start Date Stop Date Status Note LastModified by Organization Details LastModified Time celecoxib 200 mg capsule TAKE 1 CAPSULE BY MOUTH EVERY DAY active Not Available Not Available No t Available albuterol sulfate 0.63 mg/3 mL solution for nebulization TAKE 3 ML INHALED 4 TIMES A DAY NEEDED FOR SHORTNESS OF BREATH OR WHEEZING active Not Available Not Available Not Available paroxetine 20 mg tablet TAKE 1 TABLET BY MOUTH DAILY active Not Available Not Available Not Available albuterol sulfate HFA 90 mcg/actuatio n aerosol inhaler INHALE 1 PUFF 4 TIMES A DAY NEEDED FOR SHORTNESS OF BREATH OR WHEEZING active Not Available Not Available Not Available fluticasone propionate 50 mcg/actuatio n nasal spray,suspen preet TAKE 1 SPRAY INTRANASALL Y EVERY 12 HOURS FOR 30 DAYS ADMINISTER INTO EACH NOSTRIL active Not Available Not Available No t Available amoxicillin 875 mg-potassium clavulanate 125 mg tablet TAKE 1 TABLET BY MOUTH EVERY 12 HOURS FOR 7 DAYS active Not Available Not Available N ot Available Flovent HFA 110 mcg/actuatio n aerosol inhaler 1 PUFF INHALED EVERY 12 HOURS FOR 30 DAYS active Not Available Not Available No t Available levalbuterol HFA 45 mcg/actuatio n aerosol inhaler INHALE 2 PUFFS EVERY 4 TO 6 HOURS NEEDED FOR SHORTNESS OF BREATH FOR 30 DAYS active Not Available Not Available Not Available diclofenac 1 % topical gel USE 2 GRAMS 3 TO 4 TIMES A DAY TO AFFECTED AREA active Not Available Not Available No t Available Vitals None Recorded Social History None recorded. Functional Status None recorded. Mental Status None recorded. Family History Nothing Reported. Medical History No medical history recorded. Gynecological HistoryNo gynecological history recorded. Obstetrics History GPAL:G 0 P 0 0 0 0 Past Encounters Encounter ID Performer Location Encounter Start Date Encounter Closed Date Diagnosis/Indication Diagnosis SNOMED-CT Code Diagnosis ICD10 Code [id number] Jarrod Dorado MD [facility] [place] [place] [address] [place] [address] [place] [address] 12/28/2022 10:31:21 12/28/2022 11:30:57 History of total replacement of left hip joint [id number] 252330 Z96.642 Tendinitis of hip 005023 006 M76.899 Health Concerns Section Related Observation LastModified by Organization Detai ls LastModified Time None Recorded Concern Status LastModified by Organization Details LastModified Time None Recorded Advance Directives Directive None Recorded Payers Encounter Date Sequence Insurance Name Policy Number Policy Sorenson Covered Member ID Sorenson Member ID Guarantor Name 12/28/2022 1 [facility] (MEDICARE REPLACEMENT/A DVANTAGE - HMO) Maegan Rivera [id number] Maegan Rivera Notes Date Note Type Note Provider Name and Address Organization Details Recorded Time 12/28/2022 text/html HPI: ?Patient comes in complaining of right hip pain. She is also here for 4-month follow-up from left total hip replacement. Regarding her left hip she is functioning very well. She reports really no pain in that side. She reports good motion. She has a history of a right total hip replacement from 2009. She reports some lateral sided pain. This patient is experiencing right hip pain at the lateral thigh, which is moderate in intensity, and has recently worsened. The pain limits some activities of daily living. Pain and restriction of function are moderate at this time. Review of systems is negative for other rapidly progressive neurological disorder, chest pain, shortness of breath, fevers, chills, or any signs of active or persistent local or systemic infection. Physical Exam: Patient is well nourished, well-developed, in no acute distress, with appropriate mood and affect. The patient is oriented to time, place, and person. Respirations are even and unlabored. There is no inguinal adenopathy. Examination of the left hip shows well-healed skin incision. Good range of motion and strength throughout the left hip. The right limb is well-perfused, shows a grossly normal motor and sensory examination. Examination of the hip shows no skin lesions. Hip motion is reduced and causes pain. FADIR is negative and LINDA is negative. Stinchfield test is negative. Patient is TTP at the greater trochanter. Ashley test is positive. Leg lengths are approximately equal. Both hips are stable and muscle strength is normal. Pedal pulses are palpable. Assessment/Plan: Patient has recovered well 3 months from her left total hip replacement. Continue hip conditioning exercises. She is having some minor issues next to her right total hip replacement which was performed in 2009. The patient has right IT band tendinitis/greater trochanter bursitis. An extensive discussion was conducted on the natural history of the disease and the variety of non-surgical options available to the patient including non-steroidal anti-inflammatory medications, physical therapy, maintenance of ideal body weight, and reduction of activity. I recommend IT band stretching exercises. She can follow-up at 1 year from surgery with repeat x-rays of the bilateral hips at that time. Jarrod Dorado MD [address], [place], [address], [place] [facility], P 12/28/2022 11:59:10 OBGyn Episode No OBEpisode recorded.
--- NOTE | 2024-09-13 12:20 | MHC.PC.OV ---
Vital Signs 09/13/24 12:28 Height 5 ft 2 in Weight 196 lb 2 oz BMI 35.9 BP 120/70 Blood Pressure Location Lt brachial Position Sitting Respiration 16 Pulse 63 Pulse Source Pulse Oximeter Pulse Oximetry (%) 94 Oxygen Delivery Method Room Air Intake Visit Reasons: f/u hypertension, chronic conditions - see comment Intake Note: f/u htn Allergies tree nut [TREE NUT] Allergy (Severe, Verified 09/13/24 12:24) SWELLING egg [EGG] Allergy (Intermediate, Verified 09/13/24 12:24) SWELLING,ITCHING aspirin [ASPIRIN] Allergy (Mild, Verified 09/13/24 12:24) GI UPSET, stomach upset milk [MILK] Allergy (Unknown, Verified 09/13/24 12:24) ITCHY TONGUE - LACTOSE INTOL FRUIT Allergy (Severe, Uncoded 12/22/23 13:57) SWELLING lisinopril Allergy (Mild, Uncoded 12/22/23 14:05) Cough Egg/Pro Allergy (Unknown, Uncoded 12/22/23 13:57) itching - no raw white, no merange Milk - lactose intollerance Allergy (Unknown, Uncoded 12/22/23 13:57) Unknown peaches, plums, apples, prunes Allergy (Unknown, Uncoded 12/22/23 13:57) anaphylaxis Medication List - Last Reconciled 09/13/24 by Roland Altman MD albuterol sulfate 0.63 mg (3 mL) inhalation QID PRN albuterol sulfate 90 mcg/actuation 1 inh inhalation QID PRN alendronate 70 mg PO QWEEK 84 days beclomethasone dipropionate 80 mcg/actuation (Qvar RediHaler) 1 inh inhalation Q12H 30 days cholecalciferol (vitamin D3) 1,250 mcg PO QWEEK 28 days epinephrine (EpiPen 2-Hong) 0.3 mg (0.3 mL) IM Q4H PRN 30 days fluticasone propionate 50 mcg/actuation (Flonase Allergy Relief) 1 spray intranasal Q12H 30 days levalbuterol tartrate 45 mcg/actuation 2 puffs inhalation Q4-6H PRN 30 days metoprolol succinate ER 25 mg PO DAILY 90 days nebulizers (AeroEclipse II Nebulizer) As directed omeprazole 20 mg PO DAILY 14 days paroxetine HCl 20 mg PO DAILY Tobacco use date assessed: 12/22/23 Dental Screening Dental Screen Date: 12/22/23 HPI f/u hypertension, chronic conditions - see comment HPI Details 83 y/o female presents to f/u hypertension, chronic conditions. Had cervicalgia, vertigo and had ordered PT. Blood pressure today 120,70, 63p. She is on metoprolol. She notes aledronate 70mg has been causing her heartburn. She takes it once a week and notes it gives her trouble all week. [facility] Surgical History (Updated 04/29/24 @ 14:00 by Ofelia Hoffman CMA) History of hip surgery Family History (Updated 04/29/24 @ 14:02 by Ofelia Hoffman CMA) Brother Cardiac pacemaker Social History (Updated 04/29/24 @ 14:01 by Ofelia Hoffman CMA) Housing: Apartment Alcohol intake: former Patient Tobacco Use Status: Never used Tobacco e-Cigarette/Vaping Use: Never Used Second Hand Smoke Exposure: No service: No Current occupational status: unemployed and retired Current occupational exposures/hazards: No Cognitive needs: No Hearing needs: No Vision needs: Yes Questionnaire PHQ-9 Over the last 2 weeks, how often have you been bothered by any of the following problems? 1. Little interest or pleasure in doing things: more than half the days 2. Feeling down, depressed, or hopeless: not at all 3. Trouble falling or staying asleep, or sleeping too much: not at all 4. Feeling tired or having little energy: several days 5. Poor appetite or overeating: not at all 6. Feeling bad about yourself - or that you are a failure or have let yourself or your family down: not at all 7. Trouble concentrating on things, such as reading the newspaper or watching television: not at all 8. Moving or speaking so slowly that other people could have noticed. Or the opposite - being so fidgety or restless that you have been moving around a lot more than usual: not at all 9. Thoughts that you would be better off or of hurting yourself in some way: not at all Total score: 3 Source: Developed by Drs. Charbel Rowley, Lula Saucedo, Jj Bernal and colleagues, with an educational vazquez from [employer]. Thrive Questionnaire Date Thrive assessed: 04/15/22 I am a: Patient What is your living situation today?: I have a steady place to live Within the past 12 months, did the food you bought not last and you didn't have the money to get more?: Never true Within the past 12 months, did you worry whether your food would run out before you got money to buy more?: Never true Do you have trouble paying for medicines?: No Do you have trouble getting transportation to medical appointments?: No Do you have trouble paying your heating and electricity bill?: No Do you have trouble taking care of your child, family member or friend?: No Do you have trouble with day-to-day activities such as bathing, preparing meals, shopping, managing finances, etc.?: No Are you currently unemployed and looking for a job?: No Are you interested in more education?: No Please select the resources that you would like help with: None Currently or been in a relationship where the following occur: No concerns reported THRIVE Score: 0 AUDIT C Alcohol Use Questionnaire (AUDIT-C) 1. How often do you have a drink containing alcohol?: Never Total Score: 0 TIMOTHY-7 AMB Questionnaire TIMOTHY-7 Date TIMOTHY - 7 assessed: 10/17/23 Feeling nervous, anxious, or on edge: 0 = Not at all Not being able to stop or control worryin = Not at all Worrying too much about different things: 0 = Not at all Trouble relaxin = Not at all Being so restless that it is hard to sit still: 0 = Not at all Becoming easily annoyed or irritable: 0 = Not at all Feeling afraid as if something awful might happen: 0 = Not at all Total TIMOTHY-7 score (0-4 normal; 5-9 mild; 10-14 moderate; 15-21 severe): 0 Source: Developed by Drs. Charbel Rowley, Lula Saucedo, Jj Bernal and colleagues, with an educational vazquez from [employer]. Review of Systems Const Denies chills, Denies fatigue, Denies fever(s), Denies headache(s) and Denies weakness ENT Denies dizziness and Denies headache(s) Card Denies dyspnea Resp Denies cough, Denies dyspnea, Denies wheezing and Denies other (shortness of breath) Musc Denies numbness and Denies tingling Neuro Denies dizziness, Denies headache(s), Denies numbness, Denies tingling and Denies weakness Psych Denies anxiety and Denies depression Endo Denies fatigue Aller/Immun Denies wheezing Physical exam (Primary Care) Vital Signs: Last Vital Signs Pulse 63 09/13/24 12:28 Resp 16 09/13/24 12:28 BP 120/70 09/13/24 12:28 Pulse Ox 94 09/13/24 12:28 Oxygen Delivery Method Room Air 09/13/24 12:28 BMI result Body Mass Index 35.9 Tobacco/Smoking Status: Tobacco use Status Tobacco use date assessed 12/22/23 09/13/24 12:23 Patient Tobacco Use Status Never used Tobacco 09/13/24 12:23 e-Cigarette/Vaping Use Never Used 09/13/24 12:23 PHQ-9: PHQ-9 Score PHQ-9: Total score 3 09/13/24 12:51 Thrive Assessment: Date of Thrive Assessment Date Thrive assessed 04/15/22 09/13/24 12:23 Currently or been in a relationship where the following occur: No concerns reported Const General: well developed; No acute distress Nutritional Appearance: well nourished Orientation/consciousness: patient oriented x3 HENMT Head: Yes normocephalic and Yes atraumatic Eyes General: appearance normal, both eyes and all related structures Pupils: Equal, round and reactive pupils present EOM: EOMs intact bilaterally Resp Effort & Inspection: normal respiratory effort Neuro General: patient oriented x3 and gait normal Cranial nerves: Yes Equal, round and reactive pupils present Psych Affect: normal affect Coding Level of Care Code Est Pt Level 4 (16184) Diagnoses Hypertension I10 Vertigo R42 Osteoporosis M81.0 Immunization counseling Z Assessment & Plan Assessment & Plan (1) Hypertension: Code(s): I10 - Essential (primary) hypertension Category: Medical (2) Vertigo: Code(s): R42 - Dizziness and giddiness Category: Medical (3) Osteoporosis: Code(s): M81.0 - Age-related osteoporosis without current pathological fracture Category: Medical (4) Immunization counseling: Code(s): Z71. - Encounter for immunization safety counseling Category: Medical Plan HTN: Blood?pressure?is?well?controlled?today.??Goal?is?less?than?140/90 Continue?current?medication Osteoporosis: Did?not?tolerate?alendronate?70?mg?weekly.??Decreased?to?35?mg?weekly Vertigo: Patient?was?referred?to?PT/vestibular?rehab?but?has?not?been?contacted?yet.??I?have?asked?the?office?to?help?get?her?scheduled. Immunization?counseling: H/o PNA. Advised?patient?go?to?her?pharmacy?for?pneumonia-21?vaccine
[2024-09-13 12:28] VITALS: BP 120/70; PULSE 63; RESP 16; O2SAT 94; BMI 35.9
== END 2024-09-13 12:53 | disposition home or self-care (01) ==
PROVIDERS: PCP Family Medicine; Visit Provider Family Medicine
DX: I10 Essential (primary) hypertension (principal); R42 Dizziness and giddiness; M81.0 Age-related osteoporosis without current pathological fracture; Z71.85 Encounter for immunization safety counseling

== ENCOUNTER → 2024-09-13 11:45 | Outpatient (BNVA) | payer MEDICARE, SELFPAY | PROVIDERS: PCP Family Medicine; Visit Provider Family Medicine | DX: I10 Essential (primary) hypertension (principal); R42 Dizziness and giddiness; M81.0 Age-related osteoporosis without current pathological fracture; Z71.85 Encounter for immunization safety counseling | CPT/HCPCS: 96127; 99212 ==

== ENCOUNTER 2024-12-13 12:00 | Outpatient (AMB) | payer MEDICARE, SELFPAY ==
--- NOTE | 2024-12-13 12:05 | A.OFFPC_ITS ---
Vital Signs 12/13/24 12:13 Height 5 ft 2 in Weight 197 lb 8 oz BMI 36.1 BP 116/66 Blood Pressure Location Lt brachial Position Sitting Respiration 14 Pulse 86 Pulse Source Pulse Oximeter Pulse Oximetry (%) 95 Oxygen Delivery Method Room Air Intake Visit Reasons: f/u hypertension, osteoporosis Intake Note: Follow up hypertension and osteoporosis. Has been out of vitamin d3 for a month. Currency Machine Operator Required: No Currency Machine Operator Name: declined, also speak welsh Allergies tree nut [TREE NUT] Allergy (Severe, Verified 12/13/24 12:09) SWELLING egg [EGG] Allergy (Intermediate, Verified 12/13/24 12:09) SWELLING,ITCHING aspirin [ASPIRIN] Allergy (Mild, Verified 12/13/24 12:09) GI UPSET, stomach upset milk [MILK] Allergy (Unknown, Verified 12/13/24 12:09) ITCHY TONGUE - LACTOSE INTOL FRUIT Allergy (Severe, Uncoded 12/13/24 12:09) SWELLING lisinopril Allergy (Mild, Uncoded 12/13/24 12:09) Cough Egg/Pro Allergy (Unknown, Uncoded 12/13/24 12:09) itching - no raw white, no merange Milk - lactose intollerance Allergy (Unknown, Uncoded 12/13/24 12:09) Unknown peaches, plums, apples, prunes Allergy (Unknown, Uncoded 12/13/24 12:09) anaphylaxis Medication List - Last Reconciled 12/13/24 by Roland Altman MD alendronate 70 mg PO QWEEK 84 days budesonide-formoterol 80-4.5 mcg/actuation (Symbicort) 1 inh inhalation BID cholecalciferol (vitamin D3) 1,250 mcg PO QWEEK 28 days epinephrine (EpiPen 2-Hong) 0.3 mg (0.3 mL) IM Q4H PRN 30 days fluticasone propionate 50 mcg/actuation (Flonase Allergy Relief) 1 spray intranasal Q12H 30 days metoprolol succinate ER 25 mg PO DAILY 90 days nebulizers (AeroEclipse II Nebulizer) As directed omeprazole 20 mg PO DAILY 14 days paroxetine HCl 20 mg PO DAILY Tobacco use date assessed: 12/13/24 Fall risk assessment: 1 Fall in past year Last assessed Fall Risk: 12/13/24 Dental Screening Dental Screen Date: 12/22/23 HPI f/u hypertension, osteoporosis HPI Details 84 y/o female presents to f/u hypertensi on, osteoporosis. Blood pressure today 116/66, 86p. She is on metoprolol 25mg daily. She is on alendronate for her osteoporosis. [facility] Surgical History (Updated 04/29/24 @ 14:00 by Ofelia Hoffman CMA) History of hip surgery Family History (Updated 04/29/24 @ 14:02 by Ofelia Hoffman CMA) Brother Cardiac pacemaker Social History (Updated 04/29/24 @ 14:01 by Ofelia Hoffman CMA) Housing: Apartment Alcohol intake: former Patient Tobacco Use Status: Never used Tobacco e-Cigarette/Vaping Use: Never Used Second Hand Smoke Exposure: No service: No Current occupational status: unemployed and retired Current occupational exposures/hazards: No Cognitive needs: No Hearing needs: No Vision needs: Yes Questionnaire PHQ-9 Over the last 2 weeks, how often have you been bothered by any of the following problems? 1. Little interest or pleasure in doing things: not at all 2. Feeling down, depressed, or hopeless: not at all 3. Trouble falling or staying asleep, or sleeping too much: not at all 4. Feeling tired or having little energy: several days 5. Poor appetite or overeating: not at all 6. Feeling bad about yourself - or that you are a failure or have let yourself or your family down: not at all 7. Trouble concentrating on things, such as reading the newspaper or watching television: not at all 8. Moving or speaking so slowly that other people could have noticed. Or the opposite - being so fidgety or restless that you have been moving around a lot more than usual: not at all 9. Thoughts that you would be better off or of hurting yourself in some way: not at all Total score: 1 Source: Developed by Drs. Charbel Rowley, Lula Saucedo, Jj Bernal and colleagues, with an educational vazquez from [employer] Thrive Questionnaire Date Thrive assessed: 04/15/22 I am a: Patient What is your living situation today?: I have a steady place to live Within the past 12 months, did the food you bought not last and you didn't have the money to get more?: Never true Within the past 12 months, did you worry whether your food would run out before you got money to buy more?: Never true Do you have trouble paying for medicines?: No Do you have trouble getting transportation to medical appointments?: No Do you have trouble paying your heating and electricity bill?: No Do you have trouble taking care of your child, family member or friend?: No Do you have trouble with day-to-day activities such as bathing, preparing meals, shopping, managing finances, etc.?: No Are you currently unemployed and looking for a job?: I choose not to answer this question Are you interested in more education?: No Please select the resources that you would like help with: None Currently or been in a relationship where the following occur: No concerns reported THRIVE Score: 0 AUDIT C Alcohol Use Questionnaire (AUDIT-C) 1. How often do you have a drink containing alcohol?: Never Total Score: 0 TIMOTHY-7 AMB Questionnaire TIMOTHY-7 Date TIMOTHY - 7 assessed: 10/17/23 Feeling nervous, anxious, or on edge: 0 = Not at all Not being able to stop or control worryin = Not at all Worrying too much about different things: 0 = Not at all Trouble relaxin = Not at all Being so restless that it is hard to sit still: 0 = Not at all Becoming easily annoyed or irritable: 0 = Not at all Feeling afraid as if something awful might happen: 0 = Not at all Total TIMOTHY-7 score (0-4 normal; 5-9 mild; 10-14 moderate; 15-21 severe): 0 Source: Developed by Drs. Charbel Rowley, Lula Saucedo, Jj Bernal and colleagues, with an educational vazquez from [employer] Review of Systems Const Denies chills, Denies fatigue, Denies fever(s), Denies headache(s) and Denies weakness ENT Denies dizziness and Denies headache(s) Card Denies chest pain, Denies lightheadedness, Denies dyspnea and Denies other (Palpitations) Resp Denies cough, Denies dyspnea, Denies wheezing and Denies other ( shortness of breath) Musc Denies numbness and Denies tingling Neuro Denies dizziness, Denies headache(s), Denies numbness, Denies tingling, Denies paresthesias and Denies weakness Psych Denies anxiety and Denies depression Endo Denies fatigue Aller/Immun Denies wheezing Physical exam (Primary Care) Vital Signs: Last Vital Signs Pulse 86 12/13/24 12:13 Resp 14 12/13/24 12:13 BP 116/66 12/13/24 12:13 Pulse Ox 95 12/13/24 12:13 Oxygen Delivery Method Room Air 12/13/24 12:13 BMI result Body Mass Index 36.1 Tobacco/Smoking Status: Tobacco use Status Tobacco use date assessed 12/13/24 12/13/24 12:16 Patient Tobacco Use Status Never used Tobacco 12/13/24 12:16 e-Cigarette/Vaping Use Never Used 12/13/24 12:05 PHQ-9: PHQ-9 Score PHQ-9: Total score 1 12/13/24 12:18 Thrive Assessment: Date of Thrive Assessment Date Thrive assessed 04/15/22 12/13/24 12:05 Currently or been in a relationship where the following occur: No concerns reported Const General: no acute distress and well developed Nutritional Appearance: well nourished Orientation/consciousness: patient oriented x3 [facility] Head: Yes normocephalic and Yes atraumatic Eyes General: appearance normal, both eyes and all related structures Pupils: Equal, round and reactive pupils present EOM: EOMs intact bilaterally Resp Effort & Inspection: normal respiratory effort Auscultation: clear to auscultation bilaterally Cardio Rate: regular rate Rhythm: regular rhythm Heart sounds: S1 normal heart sound present, S2 normal heart sound present, no gallops, no murmurs and no rubs Neuro General: patient oriented x3 and gait normal Cranial nerves: Yes Equal, round and reactive pupils present Psych Affect: normal affect Coding Level of Care Code Est Pt Level 3 (83576) Diagnoses Hypertension I10 Osteoporosis M81.0 Assessment & Plan Assessment & Plan (1) Hypertension: Code(s): I10 - Essential (primary) hypertension Category: Medical Plan: Blood?pressure?controlled.??Goal?is?less?than?140/90 Continue?current?medication?regimen (2) Osteoporosis: Code(s): M81.0 - Age-related osteoporosis without current pathological fracture Category: Medical Plan: Patient?had?an?tolerated?alendronate?70?mg?weekly. She?had?received?dose?change?of?35?mg?weekly Will?send?this.??If?she?is?still?not?tolerating?will?refer?Rheumatology Medications: Changed From alendronate 70 mg PO QWEEK 84 days 12 tabs 0RF M81.0 - Age-related osteoporosis without current pathological fracture To alendronate 35 mg PO QWEEK 12 tabs 0RF 84 days M81.0 - Age-related osteoporosis without current pathological fracture Refilled cholecalciferol (vitamin D3) 1,250 mcg PO QWEEK 4 caps 1RF 28 days
[2024-12-13 12:13] VITALS: BP 116/66; PULSE 86; RESP 14; O2SAT 95; BMI 36.1
--- OUTSIDE RECORDS SUMMARY | 2024-12-13 14:37 | XMS_ITS | Clinical Summary ---
Author Organization [facility] Address [address] [place] [address] Care Team Providers Care Singeing Torch Operator Name Role Phone Roland Altman MD Primary Care Provider [phone] Allergies Active Allergy Reactions Criticality Noted Date Comments Aspirin Nausea And Vomiting 09/05/2012 Medications Medication Sig Dispensed Refills Start Date End Date Status celecoxib (CeleBREX) 200 MG capsule Take 1 capsule (200 mg total) by mouth daily as needed. 0 06/23/2022 Active PARoxetine (PAXIL) 20 MG tablet Take 1 tablet (20 mg total) by mouth daily. 0 04/23/2022 Active ALBUTEROL IN Inhale 2 puffs into the lungs every 6 (six) hours as needed. 0 Active acetaminophen (TYLENOL) 500 MG chewable tablet Chew 2 tablets (1,000 mg total) by mouth every 8 (eight) hours. 30 tablet 0 09/05/2022 Active oxyCODONE (ROXICODONE) 5 MG immediate release tablet Take 1 tablet (5 mg total) by mouth every 6 (six) hours as needed for pain for up to 40 doses. 40 tablet 0 09/05/2022 Active Active Problems No known active problems Immunizations Name Administration Dates Next Due Covid-19 (Pfizer) Dilution Required 07/23/2021,0 11/10/2020,10/30/2020 Family History Medical History Relation Name Comments Cancer Mother Ovarian GI problems Mother Cancer Sister Relation Name Status Comments Father (Age 20's) Suicide Mother (Age 110) Natural C auses Sister Social History Tobacco Use Types Packs/Day Years Used Date Smoking Tobacco: Never Smokeless Tobacco: Never Tobacco Cessation:Counseling Given: Not Answered Alcohol Use Standard Drinks/Week Comments Never 0 (1 standard drink = 0.6 oz pur e alcohol) Sex and Gender Information Value Date Recorded Sex Assigned at Female 07/15/2022 2:04 PM EDT Gender Identity Female 07/15/2022 2:04 PM EDT Sexual Orientation Straight 09/05/2022 5: 36 AM EST Job Start Date Occupation Industry Not on file Not on file Not on file Last Filed Vital Signs Vital Sign Reading Time Taken Comments Blood Pressure 168/97 09/05/2022 10:54 AM EST Pulse 66 09/05/2022 10:30 AM EST Temperature 36.1 ??C (97 ??F) 09/05/2022 9:15 AM EST Respiratory Rate 12 09/05/2022 10:30 AM EST Oxygen Saturation 96% 09/05/2022 10:30 AM EST Inhaled Oxygen Concentration - - Weight 82.6 kg (182 lb) 10/26/2022 10:34 AM EST Height 154.9 cm (5' 1 ) 10/26/2022 10:34 AM EST Body Mass Index 34.39 10/26/2022 10:34 AM EST Plan of Treatment Health Maintenance Due Date Last Done Comments Depression Screening 1953 BMI Counseling 1959 Preventative Health Evaluation 1959 DTap / Tdap / Td (1 - Tdap) 1960 Shingrix-Zoster Vaccine (1 o f 2) 1991 Fall Risk Assessment 2006 Osteoporosis Screening (DEXA Scan) 2006 Pneumococcal Vaccine (1 of 1 - PCV) 2006 RSV Adult > 60+ Yrs or (1 - 1-dose 75+ series) 2016 COVID-19 Vaccine (4 - 2023-2 5 season) 2024 07/23/2021, 11/10/2020, 10/30/2020 Influenza Vaccine (#1) 2024 Hepatitis B Vaccines Aged Out No long er eligible based on patient's age to complete this topic RSV Ped < 20 months Aged Out No longe r eligible based on patient's age to complete this topic Medical Devices Implanted Type Area Fretted Instrument Repairer Device Identifier Shelf Expiration Date Model / Serial / Lot [place] V40 Cemented Hip Stem Implanted:Qty : 1 on 09/05/2022 by Jarrod Dorado MD at [facility] [place] [facility] Total Joint Left: Hip [id number] 06/17/2027 / [id number] / [id number] Cement Bone Surg Simplex Radiopq Stry-Howm 5126-5-637-11 409 - [id number] Implanted:Qty : 1 on 09/05/2022 by Jarrod Dorado MD at [facility] [place] [facility] Left: Hip [employer] [facility] [id number] 08/24/2023 6190-09-25 0 / / [id number] Cement Bone Surg Simplex Radiopq Stry-Howm 0970-6-259-11 409 - [id number] Implanted:Qty : 1 on 09/05/2022 by Jarrod Dorado MD at [facility] Left: Hip [facility] [employer] [id number] 08/24/2023 6190-09-25 0 / / [id number] Tritanium Cluster Hole Shell 52mm Stry-Howm [id number] [id number] - [id number] Implanted:Qty : 1 on 09/05/2022 by Jarrod Dorado MD at [facility] Left: Hip [employer] [id number] 06/06/2027 702-04-52 E / / [id number] Liner Trident X3 0 Deg 36mm 5.9mm Sz E Stry-Howm [id number] 3661 - [id number] Implanted:Qty : 1 on 09/05/2022 by Jarrod Dorado MD at [facility] Left: Hip [employer] [facility] [id number] 07/28/2027 723-00-36 E / / [id number] Lp Hex Screw 6.5x30mm Stry-Howm [id number] 478 - [id number] Implanted:Qty : 1 on 09/05/2022 by Jarrod Dorado MD at [facility] Left: Hip [facility] [id number] 06/16/2027 6969-0691 / / [id number] Hip Head Delta Amy 36mm 0 Stry-Howm [id number] 8812 - [id number] Implanted:Qty : 1 on 09/05/2022 by Jarrod Dorado MD at [facility] Left: Hip [facility] [id number] 06/21/2027 6570-0-13 [id number] Advance Directives For more information, please contact: [phone] Documents on File Type Date Recorded Patient Global Sales Executive Expl anation Advance Directive and Living Will 09/05/2022 [facility] Latest Code Status on File Code Status Date Activated Date Inactivated Comments Full Code 09/05/2022 9:01 AM 09/05/2022 7:21 PM Thi s code status was ascertained in the following way: discussion with patient . Code Status History Code Status Date Activated Date Inactivated Comments Full Code 09/05/2022 5:24 AM 09/05/2022 9:01 AM Thi s code status was ascertained in the following way: discussion with patient . Care Teams Singeing Torch Operator Relationship Specialty Start Date End Date Roland Altman MD [address] [place] [id number] PCP - General Family Medicine 07/06/22
--- OUTSIDE RECORDS SUMMARY | 2024-12-13 14:37 | XMS_ITS ---
Author Name [facility] Organization Unknown Encounters Encounter Type Encounter Reason Primary Diagnosis Location Date Ambulatory [facility] [place] 11/29/2023 Ambulatory [facility] [place] 10[facility]24/2023 Ambulatory [facility] [place] 09/19/2023
--- OUTSIDE RECORDS SUMMARY | 2024-12-13 14:37 | XMS_ITS | Clinical Summary ---
Author Organization [facility] Address [address] [place] [address] Care Team Providers Care Central Stores Attendant Name Role Phone Roland Altman MD Primary Care Provider Surgical History Surgery Date Site/Laterality Comments HIP ARTHROPLASTY 2009 PROCEDURE: HISTORICAL HIP REPLACEMENT; COMMENT: right Family History Medical History Relation Name Comments Colon cancer Other 1 nephew Other: ca pancreas Sister 1 Breast cancer Neg Hx Ovarian cancer Neg Hx Relation Name Status Comments Other 1 Other 2 Sister 1 Sister 2 Social History Tobacco Use Types Packs/Day Years Used Date Smoking Tobacco: Former Alcohol Use Standard Drinks/Week Comments No 0 (1 standard drink = 0.6 oz pur e alcohol) Comments Unknown Sex and Gender Information Value Date Recorded Sex Assigned at Not on file Legal Sex Female 6:18 PM EST Gender Identity Not on file Sexual Orientation Not on file Obstetrics History Last Filed Vital Signs Vital Sign Reading Time Taken Comments Blood Pressure 146/82 08/16/2022 1:40 PM EST Sit ting Left arm Pulse 78 08/16/2022 1:40 PM EST Temperature - - Respiratory Rate - - Oxygen Saturation - - Inhaled Oxygen Concentration - - Weight 82.6 kg (182 lb) 10/26/2022 10:3 4 AM EST Height 154.9 cm (5' 1 ) 10/26/2022 10:3 4 AM EST Body Mass Index 34.39 10/26/2022 10:34 AM EST Plan of Treatment Health Maintenance Due Date Last Done Comments DTaP,Tdap,and Td Vaccines (1 - Tdap) 1960 Pneumococcal Vaccine: 50+ Years (1 of 1 - PCV) 1991 Zoster Vaccines (1 of 2) 1991 RSV Immunization Patients 60 + Years Old (1 - 1-dose 75+ series) 2016 Depression Screening 09/08/2022 Falls Risk Assessment 09/08/2022 Osteoporosis Screening (Bone Density Screening) 09/08/2022 Social Influencers of Health Screening 09/08/2022 COVID-19 Vaccine (2023-2 5 season) 2024 07/23/2021, 11/10/2020, 10/30/2020 Influenza Vaccine (#1) 2024 HIB Vaccines Aged Out No longer eligi ble based on patient's age to complete this topic HPV Vaccines Aged Out No longer eligi ble based on patient's age to complete this topic Hepatitis A Vaccines Aged Out No long er eligible based on patient's age to complete this topic Hepatitis B Vaccines Aged Out No long er eligible based on patient's age to complete this topic IPV Vaccines Aged Out No longer eligi ble based on patient's age to complete this topic MMR Vaccines Aged Out No longer eligi ble based on patient's age to complete this topic Meningococcal ACWY Vaccine Aged Out N o longer eligible based on patient's age to complete this topic Meningococcal B Vacine Aged Out No lo nger eligible based on patient's age to complete this topic RSV Immunization Patients Under 20 months Aged Out No longer eligible b ased on patient's age to complete this topic Varicella Vaccines Aged Out No longer eligible based on patient's age to complete this topic Medical Devices Implanted Type Area Access Tech Device Identifier Shelf Expiration Date Model / Serial / Lot [place] V40 Cemented Hip Stem Implanted:Qty : 1 on 09/05/2022 by Jarrod Dorado MD Joints Left: Hip [id number] 06/17/2027 / [id number] / [id number] Cement Bone Surg Simplex Radiopq Stry-Howm 5868-1-410-11 409 Implanted:Qty : 1 on 09/05/2022 by Jarrod Dorado MD Left: Hip [employer] [id number] 08/24/2023 6191-1-01 0 / / [id number] Cement Bone Surg Simplex Radiopq Stry-Howm 8953-8-131-11 409 Implanted:Qty : 1 on 09/05/2022 by Jarrod Dorado MD Left: Hip [employer] [id number] 08/24/2023 6191-1-01 0 / / [id number] Tritanium Cluster Hole Shell 52mm Stry-Howm [id number] [id number] Implanted:Qty : 1 on 09/05/2022 by Jarrod Dorado MD Left: Hip [employer] [id number] 06/06/2027 702-0452 E / / [id number] Liner Trident X3 0 Deg 36mm 5.9mm Sz E Stry-Howm [id number] 3661 Implanted:Qty : 1 on 09/05/2022 by Jarrod Dorado MD Left: Hip [employer] [id number] 07/28/2027 723-36 E / / [id number] Lp Hex Screw 6.5x30mm Stry-How [id number] Implanted:Qty : 1 on 09/05/2022 by Jarrod Dorado MD Left: Hip [employer] [id number] 06/16/2027 4572-6793 / / [id number] Hip Head Delta Amy 36mm 0 Stry-How [id number] [id number] Implanted:Qty : 1 on 09/05/2022 by Jarrod Dorado MD Left: Hip [facility] [facility] [id number] 06/21/2027 6570-0-13 6 / / [id number] Advance Directives Documents on File Type Date Recorded Patient Negative Assembler Expl anation Health Care Decision (hx) 09/05/2022 ADVANCE DIRECTIVE AN D LIVING WILL Care Teams Central Stores Attendant Relationship Specialty Start Date End Date Roland Altamn MD [address] [place] [address] Dr Pasquale MA PCP - General 07/06/22
== END 2024-12-13 12:30 | disposition home or self-care (01) ==
LOC: HO.HMCFM 12:01
PROVIDERS: PCP Family Medicine; Visit Provider Family Medicine
DX: I10 Essential (primary) hypertension (principal); M81.0 Age-related osteoporosis without current pathological fracture

== ENCOUNTER → 2024-12-13 12:00 | Outpatient (BNVA) | payer MEDICARE, SELFPAY | PROVIDERS: PCP Family Medicine; Visit Provider Family Medicine | DX: I10 Essential (primary) hypertension (principal); M81.0 Age-related osteoporosis without current pathological fracture | CPT/HCPCS: 99212 ==

== ENCOUNTER 2025-02-25 11:51 | Outpatient (AMB) | payer MEDICARE, SELFPAY ==
--- NOTE | 2025-02-25 11:55 | AM.OFFVISMDC ---
Intake Vital Signs 02/25/25 12:10 Height 5 ft 2 in Weight 194 lb BMI 35.5 BP 115/70 Blood Pressure Location Rt brachial Position Sitting Respiration 12 Pulse 66 Pulse Source Pulse Oximeter Temp 97.2 F Temp Source Oral Pulse Oximetry (%) 95 Oxygen Delivery Method Room Air Intake Visit Reasons: Physical / Dr. Altman's pt. Intake Note: AWV. 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 Required: No Allergies tree nut [TREE NUT] Allergy (Severe, Verified 02/25/25 12:02) SWELLING egg [EGG] Allergy (Intermediate, Verified 02/25/25 12:02) SWELLING,ITCHING aspirin [ASPIRIN] Allergy (Mild, Verified 02/25/25 12:02) GI UPSET, stomach upset milk [MILK] Allergy (Unknown, Verified 02/25/25 12:02) ITCHY TONGUE - LACTOSE INTOL FRUIT Allergy (Severe, Uncoded 02/25/25 12:02) SWELLING lisinopril Allergy (Mild, Uncoded 02/25/25 12:02) Cough Egg/Pro Allergy (Unknown, Uncoded 02/25/25 12:02) itching - no raw white, no merange Milk - lactose intollerance Allergy (Unknown, Uncoded 02/25/25 12:02) Unknown peaches, plums, apples, prunes Allergy (Unknown, Uncoded 02/25/25 12:02) anaphylaxis Medication List - Last Reconciled 02/25/25 by Justyna Noble, [facility]- alendronate 35 mg PO QWEEK 84 days budesonide-formoterol 80-4.5 mcg/actuation (Symbicort) 1 inh inhalation BID cholecalciferol (vitamin D3) 1,250 mcg PO QWEEK 28 days epinephrine (EpiPen 2-Hong) 0.3 mg (0.3 mL) IM Q4H PRN 30 days fluticasone propionate 50 mcg/actuation (Flonase Allergy Relief) 1 spray intranasal Q12H 30 days metoprolol succinate ER 25 mg PO DAILY 90 days nebulizers (AeroEclipse II Nebulizer) As directed omeprazole 20 mg PO DAILY 14 days paroxetine HCl 20 mg PO DAILY prazosin 1 mg PO BEDTIME PRN Do you need a note to return to daycare/school/sports/work: No HPI HPI Comments History of Present Illness Details Here today for AWV. The Medicare Annual Wellness Visit (AWV) is a yearly appointment with a health professional to identify health risks and help reduce them and to create or update a personalized prevention plan. During a Medicare AWV, health professionals should also review any current opioid prescriptions, detect any cognitive impairment, and establish or update medical and family history. 84 y/o F with HTN, Osteoporosis, Vit D def, allergic rhinits, TIMOTHY, asthma, caratact s/p removal, GERD, Obesity, PTSD, Urinary incont, Vertigo HTN retinopathy bilat, Central retinal vein occlusion L eye w/ macular edema resolved SurgHx: Y FHx: Y SocHx: Y Health Maintenance: See scanned preventative medicine assessment with personalized health plan and screening schedule. DEXA 2023 Mammo Colon 2011 Tdap 2021, Shingles, Prevnar 15 and 20 du PAP nA AAA screen: NA EKG: NSR done today [place] of Care: Cards optho 2023 Visual Acuity: Glasses, last exam 1 year. Blurred vision Hearing Screening: no concerns ACP: does not have, MOLST and HCP provided today along w/ education Dietary/Nutrition/Exercise Edu provided: Y During the course of the visit the patient was educated and counseled about appropriate screening and preventative services. Patient instructions were provided to the patient in written or electronic format. I have reviewed and verified the above information. History of Present Illness - The patient is an 84-year-old female presenting for an annual Medicare wellness visit and management of multiple chronic conditions. - Hypertension/Palps managed with metoprolol - Osteoporosis treated with Fosamax and vitamin D3. Declined additional DEXA - Deficient in vitamin D, taking weekly supplement. - GERD controlled with omeprazole. - Asthma stable on Symbicort; morning difficulty reported d/t allergies - Allergic rhinitis treated with fluticasone, requires refill. - Anxiety disorder under control, on paxil. - Past retinal vein occlusion resolved, c/o blurred vision bilat, does not have Optho appt set up at this time - Reports poor sleep due to vivid dreams, causing daytime tiredness. - Vertigo acknowledged; managed with caution in daily activities. - Prior fall incident without current fear of falling or further falls. Past Surgical History - Bilateral hip replacement - Cataract surgery Social History - Lives independently; primary functions limited by fatigue due to bilateral hip replacement and asthma. - Formerly a sugarholic but no mention of current dietary management. 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 - Does not drive; receives help from family with day-to-day activities. - Reports a supportive family structure, with four children providing assistance. Health Maintenance - Annual wellness exam completed. - Pneumonia and shingles vaccines recommended, to be obtained at a pharmacy. - Due for vitamin D level and repeat bone density scan. - Referral for vision exam. - Encouragement for safe practices regarding hypertension management to prevent retinal damage. Review of Systems - General: Denies weight changes, reports fatigue due to dreams. - Eyes: Reports blurred vision, past retinal vein occlusion. - Ears: no current issues. - Cardiovascular: Denies chest pain, reports hypertension. - Respiratory: Reports asthma, difficulty breathing in mornings, denies cough. - Gastrointestinal: Experiences GERD, managed with medication. - Musculoskeletal: Reports L knee swelling and pain, prior hip surgery. [facility], family works there. - Neurological: Reports dizziness, vertigo. Denies stroke. - Psychiatric: Reports anxiety disorder, well-controlled. Denies depression. - Skin LLE has a skin lesion that has been present for years, waxes and wanes. Physical Exam General: Well developed, well nourished, in no acute distress. Appears stated age. Head: Normocephalic, atraumatic. Eyes: Pupils are equal, round and reactive to light and accommodation. Conjunctivae are clear. Vision grossly normal. Ears: Cerumen impaction R EAC unable to be cleared, L TM intact and clear Nose: Patent, without discharge. Neck: Supple, no adenopathy or thyromegaly. Breast: Edu on SBE Lungs: Clear to auscultation bilaterally. No rales, rhonchi or wheeze noted. Good air flow in all medeiros. Heart: Regular rate and rhythm. No murmurs, click, rubs or gallops are noted. EKG shows normal sinus rhythm. Abdomen: Bowel sounds present in all quadrants. The abdomen is soft, nontender, with no masses or organomegaly noted. No hernias are noted. : Deferred. 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 Extremities: No clubbing, cyanosis nor edema is noted. Neurologic: Gait and station normal. Cranial Nerves 2-12 intact. Motor strength grossly symmetrical and intact. No sensory loss. Balance normal. Skin: No rashes, ulcers; L lateral leg is a garcia sandpaper like plaque. Turgor is good. Skin color is good. Hair and nails are without abnormalities. Psych: Normal eye contact, affect and mood appropriate, and normal interactions. Patient is alert and appropriate to context. Results - Labs: A1c 5.2%, indicating no diabetes. - EKG: Normal sinus rhythm. Discussion Notes Today, the primary focus was on the annual wellness examination and address of chronic conditions. The patient expressed concerns regarding high-dose vitamin D supplements, which would be evaluated with upcoming lab work. I discussed monitoring and management options for hypertension-associated vision changes, recommending follow-up with an internal controls manager. For sleep disturbances due to vivid dreams, I suggested trying prazosin and reviewed its non-addictive nature and respect for side effects. We also addressed the patient's osteoarthritis diagnosis with planned referrals to orthopedic specialists. Additionally, I provided anticipatory guidance regarding fall prevention and confirmed vaccine recommendations for pneumonia and shingles. The patient demonstrated good understanding and engagement in the care plan. Assessment and Plan 1. Essential Hypertension - Continue metoprolol; ophthalmology follow-up. 2. Osteoporosis and Vitamin D Deficiency - Continue Fosamax; check vitamin D. 3. Chronic GERD - Maintain omeprazole therapy. 4. Asthma - Continue Symbicort; monitor symptoms. 5. Seasonal Allergies - Renew fluticasone. 6. Generalized Anxiety Disorder - Maintain paroxetine dose. 7. Vision Changes - Eye doctor referral. 8. Sleep Difficulties - Initiate prazosin. 9. Vertigo - Safety measures in place. 10. Cerumen impaction Unsuccessful lavage, use OTC debrox, RTO prn Patient Instructions - Continue taking metoprolol, omeprazole, and paroxetine as prescribed. - Use Symbicort and Fluticasone regularly for asthma and allergies. - Take prazosin 30 minutes before bedtime. - Schedule appointments with eye and orthopedic specialists. - Obtain pneumonia and shingles vaccines at the pharmacy. - Maintain safe precautions to prevent falls. - Await contact for lab appointment Derm referral to [facility] left leg lesion - Debrox - RTO 6 months for routine f/u with PCP sooner PRN Consent Patient was informed and verbally consented to the use of an ambient scribe for clinic note documentation during this visit. An additional 30 minutes was spent addressing the problem(s) noted at todays visit. This includes time spent before the visit reviewing the chart, time spent during the visit, and time spent after the visit on documentation reviewing laboratory results, diagnostic imaging, medications, performing a medically necessary evaluation, counseling on diagnoses, care coordination, ordering appropriate tests, ordering appropriate medications, review of tests performed by other providers, reporting test results with the patient, communication with other healthcare providers. [facility] Surgical History (Updated 02/25/25 @ 17:58 by Justyna Noble [facility]) History of colonoscopy (~2011) History of hip surgery Family History (Updated 04/29/24 @ 14:02 by Ofelia Hoffman CMA) Brother Cardiac pacemaker Social History (Updated 04/29/24 @ 14:01 by Ofelia Hoffman CMA) Housing: Apartment Alcohol intake: former Patient Tobacco Use Status: Never used Tobacco e-Cigarette/Vaping Use: Never Used Second Hand Smoke Exposure: No service: No Current occupational status: unemployed and retired Current occupational exposures/hazards: No Cognitive needs: No Hearing needs: No Vision needs: Yes Questionnaire Medicare Wellness Checkup What is your age?: 80 or older What gender do you identify with?: female During the past 4 weeks, how much have you been bothered by emotional problems such as feeling anxious, depressed, irritable, sad or downhearted, and blue?: not at all During the past 4 weeks, has your physical & emotional health limited your social activities with family, friends, neighbors, or groups?: not at all During the past 4 weeks, how much bodily pain have you generally had?: mild pain During the past 4 weeks, was someone available to help you if you needed & wanted help?: yes, as much as I wanted During the past 4 weeks, what was the hardest physical activity you could do for at least 2 minutes?: light Can you get to places out of walking distance without help? (For eg., can you travel alone on buses, taxis or drive your car?): Yes Can you go shopping for groceries or clothes without someone's help?: Yes Can you prepare your own meals?: Yes Can you do your housework without help?: Yes Because of any health problems, do you need the help of another person with your personal care needs such as eating, bathing, dressing or getting around the house?: Yes Can you handle your own money without help?: No During the past 4 weeks, how would you rate your health in general?: very good During the past 4 weeks how have things been going for you?: pretty well Are you having difficulties driving your car?: not applicable, I don't use a car Do you always fasten your seat belt when you are in a car?: yes, usually During past 4 weeks, have you been bothered by the following: never: Sexual problems?, Trouble eating well?, Teeth or denture problems?, Problems using the telephone? and Tiredness or fatigue? and always: Falling or dizzy when standing up Have you fallen 2 or more times in the past year?: No Are you afraid of falling?: No Are you a smoker?: no During the past 4 weeks, how many drinks of wine, beer, or other alcoholic beverages did you have?: no alcohol at all Do you exercise for about 20 minutes 3 or more times a week?: no, I usually do not exercise this much Have you been given information to help with the following?: no: Hazards in your house that might hurt you? and no: Keeping track of your medications? How often do you have trouble taking medicines the way you have been told to take them?: I always take medicine as prescribed How confident are you that you can control & manage most of your health problems?: very confident What is your race?: or origin or descent Activity of Daily Living Bathing - sponge bath, tub bath or shower: receives no assistance (gets in/out by self, if usual bathing means Dressing - getting clothes from closets & drawers, including inner/outer garments & fasteners.: gets clothes & gets completely dressed without help Toileting - going to the 'toilet room' for urine/bowel elimination & cleaning self/arranging clothes: goes to toilet room, cleans self, arranges clothes without help Transfer: moves in & out of bed and chair without help (may use support object) Continence: controls urination/bowel movements completely by self Feeding: feeds self without help Total Score: 0 Information obtained from: patient Using telephone: independent Traveling: needs assistance Shopping: needs assistance Housework: needs assistance Taking medicine: independent Managing money: needs assistance PHQ-9 Over the last 2 weeks, how often have you been bothered by any of the following problems? 1. Little interest or pleasure in doing things: not at all 2. Feeling down, depressed, or hopeless: not at all 3. Trouble falling or staying asleep, or sleeping too much: not at all 4. Feeling tired or having little energy: not at all 5. Poor appetite or overeating: not at all 6. Feeling bad about yourself - or that you are a failure or have let yourself or your family down: not at all 7. Trouble concentrating on things, such as reading the newspaper or watching television: not at all 8. Moving or speaking so slowly that other people could have noticed. Or the opposite - being so fidgety or restless that you have been moving around a lot more than usual: not at all 9. Thoughts that you would be better off or of hurting yourself in some way: not at all Total score: 0 Depression Screening Interpretation: Negative Depression Screening Done: Yes 69541 - PHQ-9 Billing: Yes Source: Developed by Drs. Charbel Rowley, Lula Saucedo, Jj Bernal and colleagues, with an educational vazquez from [employer]. Physical Exam Vital Signs: Last Vital Signs Temp 97.2 F 02/25/25 12:10 Pulse 66 02/25/25 12:10 Resp 12 02/25/25 12:10 BP 115/70 02/25/25 12:10 Pulse Ox 95 02/25/25 12:10 Oxygen Delivery Method Room Air 02/25/25 12:10 BMI result Body Mass Index 35.5 Office Procedures Cerumen Removal From which ear canal was the cerumen removed: right Removal: irrigation Notes: patient tolerated procedure well (unsuccessful ) [id number] Irrigation/Lavage EKG [id number], Complete Vision Screening Right Eye: 20/30 Left Eye: 20/30 Bilateral: 20/20 Color: Pass Corrected: Pass (wearing glasses) 93596 - Vision Screening Results AMB Hemoglobin A1c AMB Hemoglobin A1c 5.2 % Last Edit by Lida Chester MA on 02/25/25 12:23 Results Reviewed Results Reviewed: Laboratory Last Values Hgb A1c (Clinic) 5.2 % (4.0-6.0) 02/25/25 12:10 Assessment & Plan Assessment & Plan (1) Encounter for subsequent annual wellness visit (AWV) in Medicare patient: Onset Date: ~02/2025 Code(s): Z00.00 - Encounter for general adult medical examination without abnormal findings (2) Pain and swelling of left knee: Code(s): M25.562 - Pain in left knee; M25.462 - Effusion, left knee (3) Hypertensive retinopathy of both eyes: Code(s): H35.033 - Hypertensive retinopathy, bilateral (4) Obesity (BMI 30-39.9): Code(s): E66.9 - Obesity, unspecified (5) Hyperlipidemia: Code(s): E78.5 - Hyperlipidemia, unspecified Qualifiers: Hyperlipidemia type: mixed hyperlipidemia Qualified Code(s): E78.2 - Mixed hyperlipidemia (6) Low vitamin D level: Code(s): R79.89 - Other specified abnormal findings of blood chemistry (7) Hypertension: Code(s): I10 - Essential (primary) hypertension Qualifiers: Hypertension type: primary hypertension Qualified Code(s): I10 - Essential (primary) hypertension (8) Osteoporosis: Code(s): M81.0 - Age-related osteoporosis without current pathological fracture Qualifiers: Osteoporosis type: unspecified Presence of current pathological fracture: without current pathological fracture Qualified Code(s): M81.0 - Age-related osteoporosis without current pathological fracture (9) ACP (advance care planning): Code(s): Z71.89 - Other specified counseling (10) Skin lesion: Comment: LLE Code(s): L98.9 - Disorder of the skin and subcutaneous tissue, unspecified (11) Impacted cerumen, right ear: Code(s): H61.21 - Impacted cerumen, right ear (12) Asthma: Code(s): J45.909 - Unspecified asthma, uncomplicated Qualifiers: Asthma severity: moderate Asthma persistence: persistent Asthma complication type: uncomplicated Qualified Code(s): J45.40 - Moderate persistent asthma, uncomplicated (13) Chronic GERD: Code(s): K21.9 - Gastro-esophageal reflux disease without esophagitis (14) Depression: Code(s): F32.A - Depression, unspecified Qualifiers: Depression Type: major depressive disorder Major depression recurrence: recurrent Active/Remission status: currently active Major depression episode severity: mild Qualified Code(s): F33.0 - Major depressive disorder, recurrent, mild (15) Palpitations: Code(s): R00.2 - Palpitations (16) Vertigo: Code(s): R42 - Dizziness and giddiness (17) Insomnia: Code(s): G47.00 - Insomnia, unspecified Qualifiers: Insomnia type: other insomnia Qualified Code(s): G47.09 - Other insomnia Plan . Orders: Orders AMB Hemoglobin A1c Today Z13.9 - Encounter for screening, unspecified Lipid Panel Today E78.5 - Hyperlipidemia, unspecified, I10 - Essential (primary) hypertension, M81.0 - Age-related osteoporosis without current pathological fracture, R79.89 - Other specified abnormal findings of blood chemistry Vitamin D 25-OH Total Today E78.5 - Hyperlipidemia, unspecified, I10 - Essential (primary) hypertension, M81.0 - Age-related osteoporosis without current pathological fracture, R79.89 - Other specified abnormal findings of blood chemistry Comprehensive Met. Panel Today E78.5 - Hyperlipidemia, unspecified, I10 - Essential (primary) hypertension, M81.0 - Age-related osteoporosis without current pathological fracture, R79.89 - Other specified abnormal findings of blood chemistry Microalbumin, Random (w Creat) Today E78.5 - Hyperlipidemia, unspecified, I10 - Essential (primary) hypertension, M81.0 - Age-related osteoporosis without current pathological fracture, R79.89 - Other specified abnormal findings of blood chemistry Referrals Ophthalmology Referral H35.033 - Hypertensive retinopathy, bilateral Dermatology Referral L98.9 - Disorder of the skin and subcutaneous tissue, unspecified Sports Medicine Referral M25.462 - Effusion, left knee, M25.562 - Pain in left knee Medications: New prazosin 1 mg PO BEDTIME PRN 90 caps 0RF insomnia, vivid dreams carbamide peroxide 6.5% (Debrox) 5 drps otic (ears) DAILY 5 days 15 mL 0RF BILAT EARS Refilled fluticasone propionate 50 mcg/actuation (Flonase Allergy Relief) administer into each nostril 1 spray intranasal Q12H 30 days 16 grams 2RF Patient Instructions: Patient Instructions - Continue taking metoprolol, omeprazole, and paroxetine as prescribed. - Use Symbicort and Fluticasone regularly for asthma and allergies. - Take prazosin 30 minutes before bedtime. - Schedule appointments with eye and orthopedic specialists. - Obtain pneumonia and shingles vaccines at the pharmacy. - Maintain safe precautions to prevent falls. - Await contact for lab appointment Derm referral to eval left leg lesion Health screenings for women You should visit your health care provider from time to time, even if you are healthy. The purpose of these visits is to: Screen for medical issues Assess your risk for future medical problems Encourage a healthy lifestyle Update vaccinations and other preventive care services Help you get to know your provider in case of an illness Information Even if you feel fine, you should still see your provider for regular checkups. These visits can help you avoid problems in the future. For example, the only way to find out if you have high blood pressure is to have it checked regularly. High blood sugar and high cholesterol levels also may not have any symptoms in the early stages. A simple blood test can check for these conditions. There are specific times when you should see your provider or receive specific health screenings. The [place] Preventive Services Task Force publishes a list of recommended screenings. Below are screening guidelines for women ages 18 to 39. BLOOD PRESSURE SCREENING Your blood pressure should be checked at least once every 3 to 5 years if: Your blood pressure is in the normal range (top number less than 120 mm Hg and bottom number less than 80 mm Hg) You don't have risk factors for high blood pressure Ask your provider if you need your blood pressure checked more often if: The top number is 120 to 129 mm Hg or the bottom number is 70 to 79 mm Hg You have diabetes, heart disease, kidney problems, are overweight, or have certain other health conditions You have a first-degree relative with high blood pressure You are Black You had high blood pressure during a If the top number is 130 mm Hg or greater or the bottom number is 80 mm Hg or greater, this is considered stage 1 hypertension. Schedule an appointment with your provider to learn how you can reduce your blood pressure. Watch for blood pressure screenings in your area. Ask your provider if you can stop in to have your blood pressure checked. BREAST CANCER SCREENING Experts do not agree about the benefits of breast self-exams in finding breast cancer or saving lives. Talk to your provider about what is best for you. A screening mammogram is not recommended for most women under age 40. Your provider may discuss and recommend mammograms, MRI scans, or ultrasounds if you have an increased risk for breast cancer, such as: A mother or sister who had breast cancer at a young age (most often starting screening earlier than the age the close relative was diagnosed) You carry a high-risk genetic marker CERVICAL CANCER SCREENING Cervical cancer screening should start at age 21 years unless your provider advises otherwise. After the first test: Women ages 21 through 29 should have a Pap test every 3 years. Exoprts do not agree on whether HPV testing is recommended for this age group. Women ages 30 through 65 should be screened with either a Pap test every 3 years or the HPV test every 5 years or both tests every 5 years (called cotesting ). Women who have been treated for precancer (cervical dysplasia) should continue to have Pap tests for 20 years after treatment or until age 65, whichever is longer. If you have had your uterus and cervix removed (total hysterectomy), and you have not been diagnosed with cervical cancer or precancer (high grade cervical neoplasia), you do not need cervical cancer screening. CHOLESTEROL SCREENING Cholesterol screening should begin at: Age 45 for women with no known risk factors for coronary heart disease Age 20 for women with known risk factors for coronary heart disease Repeat cholesterol screening should take place: Every 5 years for women with normal cholesterol levels More often if changes occur in lifestyle (including weight gain and diet) More often if you have diabetes, heart disease, kidney problems, or certain other conditions DIABETES SCREENING You should be screened for diabetes starting at age 35 and then repeated every 3 years if you have no risk factors for diabetes. Screening may need to start earlier and be repeated more often if you have other risk factors for diabetes, such as: You have a first degree relative with diabetes. You are overweight or have obesity. You have high blood pressure, prediabetes, or a history of heart disease. Screening for diabetes should be done if you are planning to become and you are overweight and have other risk factors such as high blood pressure. DENTAL EXAM Go to the dentist once or twice every year for an exam and cleaning. Your dentist will evaluate if you need more frequent visits. EYE EXAM Have an eye exam every 5 to 10 years before age 40. If you have vision problems, have an eye exam every 2 years or more often if recommended by your provider. You should have an eye exam that includes an examination of your retina (back of your eye) at least every year if you have diabetes. IMMUNIZATIONS Commonly needed vaccines include: Flu shot: get one every year. COVID-19 vaccine: ask your provider what is best for you. Tetanus-diphtheria and acellular pertussis (Tdap) vaccine: have one at or after age 19 as one of your tetanus-diphtheria vaccines if you did not receive it as an adolescent. Tetanus-diphtheria: have a booster (or Tdap) every 10 years. Varicella vaccine: receive 2 doses if you never had chickenpox or the varicella vaccine. Hepatitis B vaccine: receive 2, 3, or 4 doses, depending on your exact circumstances. Measles, mumps, and rubella (MMR) vaccine: receive 1 to 2 doses if you are not already immune to MMR. Your provider can tell you if you are immune. Ask your provider about the human papillomavirus (HPV) vaccine if: You have not received the HPV vaccine in the past You have not completed the full vaccine series (you should catch up on this shot) Ask your provider if you should receive other immunizations if you have certain health problems that increase your risk for some diseases such as pneumonia. INFECTIOUS DISEASE SCREENING Women who are sexually active should be screened for chlamydia and gonorrhea up until age 25. Women 25 years and older should be screened for chlamydia and gonorrhea if at high risk. Screening for hepatitis C: All adults ages 18 to 79 should get a one-time test for hepatitis C. people should be screened at every . Screening for human immunodeficiency virus (HIV): All people ages 15 to 65 should get a one-time test for HIV. Depending on your lifestyle and medical history, you may also need to be screened for infections such as syphilis and HIV, as well as other infections. PHYSICAL EXAM All adults should visit their provider from time to time, even if they are healthy. The purpose of these visits is to: Screen for disease Assess your risk of future medical problems Encourage a healthy lifestyle Update your vaccinations and other preventive care services Maintain a relationship with a provider in case of an illness Your height, weight, and BMI should be checked at every exam. During your exam, your provider may ask you about: Depression and anxiety Diet and exercise Alcohol and tobacco use Safety issues, such as using seat belts, smoke detectors, and intimate partner violence Your medicines and risk for interactions SKIN SELF-EXAM Your provider may check your skin for signs of skin cancer, especially if you're at high risk, such as if you: Have had skin cancer before Have close relatives with skin cancer Have a weakened immune system OTHER SCREENING Talk with your provider about colon cancer screening if you have a strong family history of colon cancer or polyps, or if you have had inflammatory bowel disease or polyps yourself. Routine bone density screening of women under 40 is not recommended. Quality Reporting (2019) Adult ([facility] 138//) Smoking risk assessment performed?: Yes Patient Tobacco Use Status: Never used Tobacco Depression screening performed: Yes Screen Results: Yes Negative screen Systolic BP not done?: No Diastolic BP not done?: No BMI screening not done: No Sexual Activity Screening ([facility] 153) Sexually active?: No Immunizations ([facility] 147, 117) Annual Influenza Vaccine: Yes Measles Antibody Test: No Mumps Antibody Test: No Rubella Antibody Test: No Varicella Antibody Test: No Anti Hepatitis A IgG Antigen test: No Fall Risk Screening ([facility] 139) Last assessed Fall Risk: 02/25/25 Fall risk assessment: 1 Fall in past year Dementia Assessment ([facility] 149) Cognitive assessment recorded: Yes Assessment of cognition with standardized tool: Yes (0/28 on 6 CIT) Depression/Bipolar (159/160/161/177) PHQ-9: Total score: 0 Ophthalmol:Cataracts Visual Acuity (133) Visual acuity exam performed: Yes (see results) Coding Level of Care Code Medicare Subsequent (G0439) Est Pt Level 4 (32760) Diagnoses Encounter for subsequent annual wellness visit (AWV) in Medicare patient Z00.00 Pain and swelling of left knee M25.562; M25.462 Hypertensive retinopathy of both eyes H35.033 Obesity (BMI 30-39.9) E66.9 Mixed hyperlipidemia E78.2 Hyperlipidemia type: mixed hyperlipidemia Low vitamin D level R79.89 Primary hypertension I10 Hypertension type: primary hypertension Osteoporosis without current pathological fracture, unspecified osteoporosis type M81.0 Osteoporosis type: unspecified Presence of current pathological fracture: without current pathological fracture ACP (advance care planning) Z71.89 Skin lesion L98.9 Impacted cerumen, right ear H61.21 Moderate persistent asthma without complication J45.40 Asthma severity: moderate Asthma persistence: persistent Asthma complication type: uncomplicated Chronic GERD K21.9 Mild episode of recurrent major depressive disorder F33.0 Depression Type: major depressive disorder Major depression recurrence: recurrent Active/Remission status: currently active Major depression episode severity: mild Palpitations R00.2 Vertigo R42 Other insomnia G47.09 Insomnia type: other insomnia CPT Codes Advance Care Planning - Time spent: 1-15 minutes, not on file ([id number]) Office Procedure - CPT: 50939-Cxs Irrigation/Lavage ([id number]) EKG - CPT: 57049-Gvkoalmnqqsdhvbyg, Complete ([id number]) Vision Screening - Vision Screenin - Vision Screening ([id number]) Additional Codes PHQ-9 - 47455 - PHQ-9 Billing: Yes ([id number]) Advance Care Planning Advance Care Planning discussion: Exists, not on file Date of discussion: 02/25/25 Who was present: self Forms completed: Health Care Proxy and Living will Time spent: 1-15 minutes, not on file Actual minutes spent: 5
[2025-02-25 12:10] VITALS: BP 115/70; PULSE 66; RESP 12; TEMP 36.2; O2SAT 95; BMI 35.5
--- OUTSIDE RECORDS SUMMARY | 2025-02-25 13:21 | XMS_ITS | Clinical Summary ---
Author Organization [facility] ity Address [address] [place] [address] Care Team Providers Care Package Clerk Name Role Phone Roland Altman MD Primary Care Provider [phone] Surgical History Surgery Date Site/Laterality Comments HIP [...] Vaccines (1 of 2) 1991 RSV Immunization Adult Patients (1 - 1-dose 75+ series) 2016 Depression Screening 09/08/2022 Falls Risk Assessment 09/08/2022 Osteoporosis Screening (Bone Density Screening) 09/08/2022 Social Influencers of Health Screening 09/08/2022 COVID-19 Vaccine (2023-2 5 season) 2024 07/23/2021, 11/10/2020, 10/30/2020 Influenza Vaccine (Season Ended) 2025 HIB Vaccines Aged Out No longer eligi [...] age to complete this topic Meningococcal B Vaccine Aged Out No l onger eligible based on patient's age to complete this topic RSV Immunization Patients Under 20 months Aged Out No longer eligible b ased on patient's age to complete this topic Varicella Vaccines Aged Out No longer eligible based on patient's age to complete this topic Medical Devices Implanted Type Area Section Gang Worker Device Identifier Shelf Expiration Date Model / Serial / Lot [place] V40 Cemented Hip Stem Implanted:Qty : 1 on 09/05/2022 by Jarrod Dorado MD Joints Left: Hip [id number] 06/17/2027 / [id number] / [id number] Cement Bone Surg Simplex Radiopq Stry-Howm [id number] Implanted:Qty : 1 on 09/05/2022 by Jarrod Dorado MD Left: Hip [employer] [id number] 08/24/2023 6191-1-01 0 / / [id number] Cement Bone Surg Simplex Radiopq Stry-Howm [id number] 409 Implanted:Qty : 1 on 09/05/2022 by Jarrod Dorado MD Left: Hip [employer] [id number] 08/24/2023 6191-1-01 0 / / [id number] Tritanium Cluster Hole Shell 52mm Stry-Howm [id number] Implanted:Qty : 1 on 09/05/2022 by Jarrod Dorado MD Left: Hip [employer] [id number] 06/06/2027 702-0452 E / / [id number] Liner Tr[place] X3 0 Deg 36mm 5.9mm Sz E Stry-Howm [id number] 3661 Implanted:Qty : 1 on 09/05/2022 by Jarrod Dorado MD Left: Hip [employer] [id number] 07/28/2027 7236 E / / [id number] Lp Hex Screw 6.5x30mm Stry-How [id number] Implanted:Qty : 1 on 09/05/2022 by Jarrod Dorado MD Left: Hip [employer] [id number] 06/16/2027 8465-7979 / / [id number] Hip Head Delta Amy 36mm 0 Stry-How [id number] Implanted:Qty : 1 on 09/05/2022 by Jarrod Dorado MD Left: Hip [employer] [id number] 06/21/2027 6570-0-13 6 / / [id number] Advance Directives Documents on File Type Date Recorded Patient Portfolio Management Marketing Expl [facility] Health Care Decision (hx) 09/05/2022 ADVANCE DIRECTIVE AN D LIVING WILL Care Teams Package Clerk Relationship Specialty Start Date End Date Roland Altman MD [address] [place] [address] Dr Pasquale MA PCP - General 07/06/22
== END 2025-02-25 13:21 | disposition home or self-care (01) ==
LOC: HO.HMCFM 11:52
PROVIDERS: PCP Family Medicine; Visit Provider Nurse Practitioner Family
DX: Z00.00 Encounter for general adult medical examination without abnormal findings (principal); M25.462 Effusion, left knee; E66.9 Obesity, unspecified; Z68.35 Body mass index [BMI] 35.0-35.9, adult; M25.562 Pain in left knee; H35.033 Hypertensive retinopathy, bilateral; E78.2 Mixed hyperlipidemia; R00.2 Palpitations; I10 Essential (primary) hypertension; M81.0 Age-related osteoporosis without current pathological fracture; L98.9 Disorder of the skin and subcutaneous tissue, unspecified; H61.21 Impacted cerumen, right ear

== ENCOUNTER → 2025-02-25 11:51 | Outpatient (BNVA) | payer MEDICARE, SELFPAY | PROVIDERS: PCP Family Medicine; Visit Provider Nurse Practitioner Family | DX: Z13.89 Encounter for screening for other disorder (principal) | CPT/HCPCS: 69209; 83036; 93005; 96127; 99212 ==

== ENCOUNTER 2025-02-25 13:28 | Outpatient (REF) | payer MEDICARE, SELFPAY ==
[2025-02-25 19:06] LABS: Alanine Aminotransferase 14 U/L (0-31); Albumin Level 4.1 g/dL (3.5-5.0); Alkaline Phosphatase 65 U/L (39-117); Anion Gap 10 (12-20); Aspartate Amino Transferase 23 U/L (5-31); Bilirubin Total 0.9 mg/dL (0.0-1.0); Blood Urea Nitrogen 10 mg/dL (9-16); Calcium 9.7 mg/dL (8.4-10.2); Carbon Dioxide 27 mmol/L (22-29); Chloride 106 mmol/L (96-108); Cholesterol 235 mg/dL (<200); Estimated Glomerular Filt Rate 53; Glucose Random 90 mg/dL (60-115); HDL Cholesterol 49 mg/dL (>40); LDL Cholesterol Calculated 158 mg/dL (<100); Potassium 4.1 mmol/L (3.3-5.1); Sodium 139 mmol/L (135-145); Total Protein 7.2 g/dL (6.5-8.0); Triglycerides 144 mg/dL (<150)
[2025-02-25 19:07] LABS: Creatinine Urine 192.37 mg/dL
[2025-02-25 19:23] LABS: Vitamin D 25-OH Total 50.1 ng/mL (>30)
== END 2025-02-25 13:29 | disposition home or self-care (01) ==
LOC: HO.WFDLDS 13:28
PROVIDERS: Visit Provider Nurse Practitioner Family
DX: Z00.01 Encounter for general adult medical examination with abnormal findings (principal); M25.562 Pain in left knee; M25.462 Effusion, left knee; H35.033 Hypertensive retinopathy, bilateral; E66.9 Obesity, unspecified; E78.2 Mixed hyperlipidemia; E55.9 Vitamin D deficiency, unspecified; I10 Essential (primary) hypertension; M81.0 Age-related osteoporosis without current pathological fracture; L98.9 Disorder of the skin and subcutaneous tissue, unspecified; H61.21 Impacted cerumen, right ear; J45.40 Moderate persistent asthma, uncomplicated; K21.9 Gastro-esophageal reflux disease without esophagitis; F33.0 Major depressive disorder, recurrent, mild; R00.2 Palpitations; R42 Dizziness and giddiness; G47.09 Other insomnia; Z79.899 Other long term (current) drug therapy; Z71.89 Other specified counseling
CPT/HCPCS: 36415; 69209; 80053; 80061; 82043; 82306; 82570; 83036; 93005; 96127; 99212